=== PATIENT | female | born 1955 | race Caucasian/White ===

== ENCOUNTER 2017-05-13 11:45 | Inpatient (IN) | payer MEDICAID, SELFPAY ==
[2017-05-13 12:24] VITALS: BMI 26.6
[2017-05-13] MEDS ORDERED: Sodium Chloride 0.9% 1,000 ML IV STA (12:26)
--- NOTE | 2017-05-13 12:44 | ED PDOC ---
HPI: Altered Mental Status Time Seen by Provider: 05/13/17 12:03 Chief Complaint (Nursing): Weakness/Neurological Deficit Chief Complaint (Provider): Weakness/Neurological Deficit History Per: Family Current Symptoms Are (Timing): Still Present Additional Complaint(s): 62 y/o female with a past medical history of brain tumor craniotomy (04/2017) who presents to the emergency department accompanied by family with a complaint of increased lethargy within the past 2-3 days. As per history from family, patient was recently evaluated by [facility], [place] where imaging/work up was performed and underwent brain tumor craniotomy. Patient had been bed bound within the last 10 days and taken care of by the family. Patient has persistent weakness of the right side of the body, generally responding back to family members by recognizing their faces but not speaking clearly, felt warm yesterday , and had not been able to swallow solid foods but instead is only tolerating liquids by mouth through a straw. Denies cough, vomiting, diarrhea, or abdominal pain. Past Medical History Reviewed: Historical Data, Nursing Documentation, Vital Signs Vital Signs: Last Vital Signs Temp 98.6 F 05/13/17 11:49 Pulse 79 05/13/17 11:49 Resp 16 05/13/17 11:49 BP 140/77 05/13/17 11:49 Pulse Ox 96 05/13/17 11:49 - Medical History PMH: HTN Denies: Chronic Kidney Disease - Surgical History Other surgeries: brain tumor craniotomy - Family History Family History: States: Unknown Family Hx - Social History Current smoker - smoking cessation education provided: No Alcohol: None Drugs: Denies - Home Medications Home Medications: Ambulatory Orders Medication Instructions Recorded Dexamethasone [Decadron Inj] 2 mg IVP Q8H #21 vial 05/07/17 levETIRAcetam [Keppra] 500 mg IVPB Q12H #60 vial 05/07/17 - Allergies Allergies/Adverse Reactions: Allergies Allergy/AdvReac Type Severity Reaction Status Date / Time No Known Allergies Allergy Verified 04/21/17 16:11 Review of Systems Review Of Systems: ROS cannot be obtained secondary to pt's inabilty to answer questions. (Limited. Family is notifying us) Constitutional: Positive for: Other ([place] warm yesterday. Feeling lethargic and not able to tolerate PO intake) Respiratory: Negative for: Cough Gastrointestinal: Negative for: Vomiting, Abdominal Pain, Diarrhea Neurological: Positive for: Weakness (presistent weakness of the right side of the body) Physical Exam - Reviewed Nursing Documentation Reviewed: Yes Vital Signs Reviewed: Yes - Physical Exam Appears: Positive for: Non-toxic, No Acute Distress Head Exam: Positive for: ATRAUMATIC, NORMAL INSPECTION, NORMOCEPHALIC Skin: Positive for: Normal Color, Warm (to touch), Dry Eye Exam: Positive for: PERRL (4 mL reactive b/l equal) ENT: Positive for: Other (Dry mucous membranes) Cardiovascular/Chest: Positive for: Regular Rate, Rhythm. Negative for: Murmur Respiratory: Positive for: Normal Breath Sounds. Negative for: Accessory Muscle Use, Respiratory Distress Gastrointestinal/Abdominal: Positive for: Normal Exam, Soft. Negative for: Tenderness Extremity: Positive for: Normal ROM, Other (4/5 strength of the left side. Minimal movement of the right side). Negative for: Pedal Edema Neurologic/Psych: Positive for: Alert, Other (Responding to name being called via gestures but not able to speak) - Laboratory Results Result Diagrams: 05/13/17 12:45 05/13/17 12:45 - ECG O2 Sat by Pulse Oximetry: 96 (RA) Pulse Ox Interpretation: Normal - Radiology X-Ray: Viewed By Mt X-Ray Interpretation: No Acute Disease - Progress Condition: Unchanged - Physician Consult Information Time Consulting Physican Contacted: 14:00 Physician Contacted: Valerio Butt (will see patient and consult) Outcome Of Conversation: patient will need chemo and radiation - Critical Care Total Time (In Min): 30 Medical Decision Making Medical Decision Making: Time: 12:25 Initial Impression: Altered mental status. Differential diagnosis include intracranial pressure vs infection vs dehydration Initial Plan: --VBG --Head CT --EKG --CMP --Urine DIP --CBC w/ diff --PTT & Prothrombin --Chest x-ray --Sodium Chloride 250 mls/hr IV --Blood Culture --Reevaluation Time: 13:33 --Head CT FINDINGS: HEMORRHAGE: No intracranial hemorrhage. BRAIN: Again seen is heterogeneous low-attenuation mass lesion at the medial aspect of the left frontal lobe extending to the midline and extending to the anterior portion of the corpus callosum. The mass demonstrate foci of high attenuation and surrounding with large vasogenic edema. The mass and the vasogenic edema again demonstrates mass effect on the frontal horns of the lateral ventricles and approximately 16 millimeter [id number] midline shift. VENTRICLES: There is mild hydrocephalus seen. CALVARIUM: Patient status post craniotomy at the frontal portion of the skull P PARANASAL SINUSES: Unremarkable as visualized. No significant inflammatory changes. MASTOID AIR CELLS: Unremarkable as visualized. No inflammatory changes. OTHER FINDINGS: None. IMPRESSION: Re- demonstration of mass lesion at the frontal portion of the brain likely arise from the medial aspect of the left frontal lobe or from the anterior portion of the corpus callosum. The mass lesion and the large surrounding vasogenic edema again resulting in mass effect on the lateral ventricles and approximately 16 millimeter [id number] midline shift at the anterior portion of the brain. The possibility of malignant neoplasm again should be considered. Interval resolving of the previously seen post surgery/biopsy changes noted in the previous exam dated 05/01/2017 done on [facility], [place]. Time: 13:38 --Rocephin 1000 mg IV --Urine culture --Urinaylsis Scribe Attestation: Documented by Molly Velez, acting as a scribe for Kenneth Boone MD. Provider Scribe Attestation: All medical record entries made by the Scribe were at my direction and personally dictated by me. I have reviewed the chart and agree that the record accurately reflects my personal performance of the history, physical exam, medical decision making, and the department course for this patient. I have also personally directed, reviewed, and agree with the discharge instructions and disposition. Disposition - Clinical Impression Clinical Impression: UTI (urinary tract infection), Dehydration, Brain tumor - Patient ED Disposition Is Patient to be Admitted: Yes Doctor Will See Patient In The: Hospital - Disposition Disposition: Transfer of Care Disposition Time: 14:00 Condition: GUARDED Forms: [employer] ([employer]ami) - Pt Status Changed To: Hospital Disposition Of: Inpatient - Admit Certification Admit to Inpatient:: After my assessment, the patient will require hospitalization for at least two midnights. This is because of the severity of symptoms shown, intensity of services needed, and/or the medical risk in this patient being treated as an outpatient. - POA Present On Arrival: None
[2017-05-13 12:50] LABS: VENOUS BLOOD GAS BASE EXCESS 5.4 mmol/L (0.0-2.0); VENOUS BLOOD GAS PCO2 38 mmHg (40-60); VENOUS BLOOD PH 7.49 (7.32-7.43)
[2017-05-13 13:02] LABS: BASO # 0.1 K/uL (0.0-0.2); BASO % 0.4 % (0.0-2.0); EOS # 0.1 K/uL (0.0-0.7); EOS % 0.4 % (0.0-4.0); HEMATOCRIT 50.3 % (34.0-47.0); LYMPH # 1.7 K/uL (1.0-4.3); LYMPH % 8.9 % (20.0-40.0); MEAN CELL VOLUME 90.7 fl (81.0-99.0); MEAN CORPUSCULAR HEMOGLOBIN 30.2 pg (27.0-31.0); MEAN CORPUSCULAR HGB CONC 33.3 g/dL (33.0-37.0); MONO # 0.7 K/uL (0.0-0.8); MONO % 3.8 % (0.0-10.0); NEUT % 86.5 % (50.0-75.0); NRBC % 0.1 % (0.0-0.0); PLATELET COUNT 307 K/uL (130-400); RED CELL DISTRIBUTION WIDTH 13.4 % (11.5-14.5); WHITE BLOOD COUNT 18.5 K/uL (4.8-10.8)
[2017-05-13 13:27] LABS: PARTIAL THROMBOPLASTIN TIME 24.2 Seconds (25.6-37.1)
[2017-05-13 13:31] LABS: ALB/GLOB RATIO 1.2 (1.0-2.1); ALKALINE PHOSPHATASE 64 U/L (38-126); ALT/SGPT 172 U/L (9-52); AST/SGOT 92 U/L (14-36); BILIRUBIN,TOTAL 1.1 mg/dl (0.2-1.3); BLOOD UREA NITROGEN 33 mg/dl (7-17); CALCIUM 9.5 mg/dL (8.4-10.2); CARBON DIOXIDE 25 mmol/L (22-30); CHLORIDE 101 mmol/L (98-107); GFR AFRICAN-AMERICAN > 60; GLUCOSE,RANDOM 124 mg/dL (65-105); SODIUM 139 mmol/l (132-148); TOTAL PROTEIN 7.5 G/DL (6.3-8.2)
--- NOTE | 2017-05-13 13:35 | CT ---
PROCEDURE: CT HEAD WITHOUT CONTRAST. HISTORY: progressive AMS s/p brain tumor resection 04/21/17 COMPARISON: Comparison is made to the previous study dated 05/01/2017 done at [facility] TECHNIQUE: Axial computed tomography images were obtained through the head/brain without intravenous contrast. Radiation dose: Total exam DLP = 1297.45 mGy-cm. This CT exam was performed using one or more of the following dose reduction techniques: Automated exposure control, adjustment of the mA and/or kV according to patient size, and/or use of iterative reconstruction technique. FINDINGS: HEMORRHAGE: No intracranial hemorrhage. BRAIN: Again seen is heterogeneous low-attenuation mass lesion at the medial aspect of the left frontal lobe extending to the midline and extending to the anterior portion of the corpus callosum. The mass demonstrate foci of high attenuation and surrounding with large vasogenic edema. The mass and the vasogenic edema again demonstrates mass effect on the frontal horns of the lateral ventricles and approximately 16 millimeter [id number]-[id number] midline shift. VENTRICLES: There is mild hydrocephalus seen. CALVARIUM: Patient status post craniotomy at the frontal portion of the skull P PARANASAL SINUSES: Unremarkable as visualized. No significant inflammatory changes. MASTOID AIR CELLS: Unremarkable as visualized. No inflammatory changes. OTHER FINDINGS: None. IMPRESSION: Re- demonstration of mass lesion at the frontal portion of the brain likely arise from the medial aspect of the left frontal lobe or from the anterior portion of the corpus callosum. The mass lesion and the large surrounding vasogenic edema again resulting in mass effect on the lateral ventricles and approximately 16 millimeter [id number] midline shift at the anterior portion of the brain. The possibility of malignant neoplasm again should be considered. Interval resolving of the previously seen post surgery/biopsy changes noted in the previous exam dated 05/01/2017 done on [facility].
[2017-05-13 13:37] LABS: POTASSIUM 4.5 MMOL/L (3.6-5.0)
[2017-05-13 14:24] LABS: EOSINOPHIL 1 % (0-7); LARGE PLATELETS PRESENT; NEUTROPHIL 86 % (42-75); TOTAL CELLS COUNTED 100
[2017-05-13] MEDS ORDERED: cefTRIAXone (Rocephin) 1 gm Inj ONE (14:51)
[2017-05-13 15:00] LABS: RBC URINE 12 /hpf (0-3); URINE BACTERIA MANY (<OCC); WBC URINE 146 /hpf (0-5)
[2017-05-13 15:08] LABS: URINE COLOR AMBER (YELLOW); URINE GLUCOSE (UA) NEGATIVE (Normal)
[2017-05-13 15:09] LABS: URINE BILIRUBIN NEGATIVE (NEGATIVE); URINE BLOOD MODERATE (NEGATIVE); URINE KETONE NEGATIVE (NEGATIVE); URINE LEUKOCYTE ESTERASE MOD Leu/uL (Negative); URINE PROTEIN 30 mg/dL (NEGATIVE)
--- NOTE | 2017-05-13 15:09 | CP.PCM.HP ---
History of Present Illness - History of Present Illness History of Present Illness: 62 yo female with history of HTN and recent craniotomy (05/03/2017) with brain tumor biopsy brought in by family because of worsening lethargy since discharged from [facility] a week ago. Son claimed his mother was lethargic , with right hemiplegia post surgery but was able to utter one word at a time and able to recognized faces. The last 3 days, patient's mental status deteriorated and could not respond at all. Present on Admission - Present on Admission Any Indicators Present on Admission: No History of DVT/PE: No History of Uncontrolled Diabetes: No Urinary Catheter: No Decubitus Ulcer Present: No Review of Systems - Review of Systems Systems not reviewed;Unavailable: Altered Mental Status Past Patient History - Tetanus Immunizations Tetanus Immunization: Unknown - Past Medical History & Family History Past Medical History?: Yes - Past Social History Smoking Status: Never Smoked Alcohol: None Drugs: Denies Home Situation {Lives}: With Family - CARDIAC Hx Hypertension: Yes - PULMONARY Hx Respiratory Disorders: No - NEUROLOGICAL Hx Neurological Disorder: No - HEENT Hx HEENT Problems: No - RENAL Hx Chronic Kidney Disease: No - ENDOCRINE/METABOLIC Hx Endocrine Disorders: No - HEMATOLOGICAL/ONCOLOGICAL Hx Blood Disorders: No - INTEGUMENTARY Hx Dermatological Problems: No - MUSCULOSKELETAL/RHEUMATOLOGICAL Hx Musculoskeletal Disorders: No Hx Falls: No - GASTROINTESTINAL Hx Gastrointestinal Disorders: No - GENITOURINARY/GYNECOLOGICAL Hx Genitourinary Disorders: No - PSYCHIATRIC Hx Substance Use: No - SURGICAL HISTORY Other/Comment: BRAIN BIOPSY 05/03/2017 - ANESTHESIA Hx Anesthesia: Yes Hx Anesthesia Reactions: No Meds Allergies/Adverse Reactions: Allergies Allergy/AdvReac Type Severity Reaction Status Date / Time No Known Allergies Allergy Verified 04/21/17 16:11 Physical Exam - Constitutional Appears: No Acute Distress, Other (lethargic) - Head Exam Head Exam: ATRAUMATIC - Eye Exam Eye Exam: PERRL. absent: Scleral icterus - ENT Exam ENT Exam: Mucous Membranes Moist - Neck Exam Neck exam: Negative for: Meningismus - Respiratory Exam Respiratory Exam: absent: Rhonchi, Wheezes, Respiratory Distress - Cardiovascular Exam Cardiovascular Exam: REGULAR RHYTHM, +S1, +S2 - GI/Abdominal Exam GI & Abdominal Exam: Soft. absent: Tenderness - Rectal Exam Rectal Exam: Deferred - Extremities Exam Extremities exam: Negative for: pedal edema - Neurological Exam Neurological exam: Altered - Skin Skin Exam: Dry, Intact Results - Vital Signs Recent Vital Signs: Last Vital Signs Temp 98.6 F 05/13/17 11:49 Pulse 79 05/13/17 11:49 Resp 16 05/13/17 11:49 BP 140/77 05/13/17 11:49 Pulse Ox 96 05/13/17 14:18 - Labs Result Diagrams: 05/13/17 12:45 05/13/17 12:45 Labs: Laboratory Results - last 24 hr 05/13/17 05/13/17 05/13/17 12:44 12:45 12:45 WBC 18.5 H RBC 5.55 H Hgb 16.8 H Hct 50.3 H MCV 90.7 MCH 30.2 MCHC 33.3 RDW 13.4 Plt Count 307 MPV 8.0 Neut % (Auto) 86.5 H Lymph % (Auto) 8.9 L [place] % (Auto) 3.8 Eos % (Auto) 0.4 Baso % (Auto) 0.4 Neut # 16.0 H Lymph # 1.7 [place] # 0.7 Eos # 0.1 Baso # 0.1 Neutrophils % (Manual) 86 H Lymphocytes % (Manual) 9 L Monocytes % (Manual) 4 Eosinophils % (Manual) 1 Platelet Estimate Normal Large Platelets Present Poikilocytosis (manual Slight Anisocytosis (manual) Slight Ovalocytes Slight PT INR APTT pO2 38 VBG pH 7.49 H VBG pCO2 38 L VBG HCO3 28.6 VBG Total CO2 30.2 H VBG O2 Sat (Calc) 79.3 H VBG Base Excess 5.4 H Sodium 160.0 H* 139 Chloride 114.0 H 101 Glucose 139 H Lactate 1.2 FiO2 21.0 Potassium 4.5 Carbon Dioxide 25 Anion Gap 18 BUN 33 H Creatinine 0.6 L Est GFR ( Amer) > 60 Est GFR (Non-Af Amer) > 60 Random Glucose 124 H Calcium 9.5 Total Bilirubin 1.1 AST 92 H D ALT 172 H Alkaline Phosphatase 64 Total Protein 7.5 Albumin 4.2 Globulin 3.4 Albumin/Globulin Ratio 1.2 05/13/17 12:45 WBC RBC Hgb Hct MCV MCH MCHC RDW Plt Count MPV Neut % (Auto) Lymph % (Auto) [place] % (Auto) Eos % (Auto) Baso % (Auto) Neut # Lymph # [place] # Eos # Baso # Neutrophils % (Manual) Lymphocytes % (Manual) Monocytes % (Manual) Eosinophils % (Manual) Platelet Estimate Large Platelets Poikilocytosis (manual Anisocytosis (manual) Ovalocytes PT 11.5 INR 1.1 APTT 24.2 L pO2 VBG pH VBG pCO2 VBG HCO3 VBG Total CO2 VBG O2 Sat (Calc) VBG Base Excess Sodium Chloride Glucose Lactate FiO2 Potassium Carbon Dioxide Anion Gap BUN Creatinine Est GFR ( Amer) Est GFR (Non-Af Amer) Random Glucose Calcium Total Bilirubin AST ALT Alkaline Phosphatase Total Protein Albumin Globulin Albumin/Globulin Ratio Assessment & Plan (1) UTI (urinary tract infection) Status: Acute Comment: admit to telemetry. blood and urine culture. continue Rocephin 1gm IV daily (2) Brain tumor Status: Acute Comment: Dr Butt on neurosurgical consult. Oncology consult with Dr Ash. neuro consult with Dr Dawson. Dexamethasone 4mg IV q 8hrs. Keppra 500mg IV q 12hrs (3) HTN (hypertension) Status: Chronic Comment: BP stable. off medication. continue monitoring BP (4) DVT prophylaxis Status: Acute Comment: venodyne boots while in bed. avoid anticoauglants and anti platelets because of recent craniotomy
[2017-05-13] MEDS: Dexamethasone 4 MG in Sodium Chloride 0.9% 50 ML IVPB SCH (16:47)
--- NOTE | 2017-05-13 16:53 | CP.PCM.PN ---
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 Family is aware of this and prognosis There is nothing more to do from a surgical point of view Please consult her medical and radiation oncologist to see if they have anything more to add Her overall prognosis is very poor, would suggest discussion end of life options with family Objective - Vital Signs/Intake and Output Vital Signs (last 24 hours): Temp Pulse Resp BP Pulse Ox 97.8 F 63 20 148/82 98 05/13/17 15:46 05/13/17 15:46 05/13/17 15:46 05/13/17 15:46 05/13/17 15:46 - Medications Medications: Current Medications Dexamethasone 4 mg/ Sodium (Chloride) 51 mls @ 51 mls/hr IVPB Q8 [facility] Last Admin: 05/13/17 16:47 Dose: 51 mls/hr Levetiracetam 500 mg/ Sodium (Chloride) 105 mls @ 210 mls/hr IVPB Q12 [facility] Ceftriaxone Sodium 1 gm/ (Sodium Chloride) 100 mls @ 100 mls/hr IVPB DAILY [facility] - Labs Labs: 05/13/17 12:45 05/13/17 12:45 PT 11.5 Seconds (9.8-13.1) 05/13/17 12:45 INR 1.1 (0.9-1.2) 05/13/17 12:45 APTT 24.2 Seconds (25.6-37.1) L 05/13/17 12:45
--- NOTE | 2017-05-13 17:26 | RAD ---
HISTORY: altered MS COMPARISON: No prior. FINDINGS: LUNGS: No active pulmonary disease. PLEURA: No significant pleural effusion identified, no pneumothorax apparent. CARDIOVASCULAR: Normal. OSSEOUS STRUCTURES: No significant abnormalities. VISUALIZED UPPER ABDOMEN: Normal. OTHER FINDINGS: None. IMPRESSION: No active disease.
[2017-05-13] MEDS: levETIRAcetam 500 MG in Sodium Chloride 0.9% 100 ML IVPB SCH (21:37)
[2017-05-13] MEDS: Sodium Chloride 0.9% 1,000 ML IV SCH (22:56)
--- NOTE | 2017-05-14 01:16 | CP.PCM.CON ---
History of Present Illness - History of Present Illness History of Present Illness: 62 year old female with a history of HTN, left sided brain mass s/p biopsy with pathology pending, admitted with increased lethargy. She initially presented to [facility] with right sided weakness and jerking of her RUE and found to have a left sided brain mass. She underwent craniotomy and biopsy. Since being discharged from the hospital, her family reports to increased lethargy and weakness. Past medical history: HTN Past surgical history: None Family history: Denies hematologic and oncologic problems Social history: Denies tobacco, alcohol, and illicit drug use. Allergies: NKA Review of systems: All remaining review of systems including HEENT, cardiovascular, respiratory, gastrointestinal, genitourinary, musculoskeletal, dermatologic, neurologic, and psychiatric are negative unless mentioned in the HPI. Past Patient History - Tetanus Immunizations Tetanus Immunization: Unknown - Past Medical History & Family History Past Medical History?: Yes - Past Social History Smoking Status: Never Smoked Alcohol: None Drugs: Denies Home Situation {Lives}: With Family - CARDIAC Hx Hypertension: Yes - PULMONARY Hx Respiratory Disorders: No - NEUROLOGICAL Hx Neurological Disorder: No - HEENT Hx HEENT Problems: No - RENAL Hx Chronic Kidney Disease: No - ENDOCRINE/METABOLIC Hx Endocrine Disorders: No - HEMATOLOGICAL/ONCOLOGICAL Hx Blood Disorders: No - INTEGUMENTARY Hx Dermatological Problems: No - MUSCULOSKELETAL/RHEUMATOLOGICAL Hx Musculoskeletal Disorders: No Hx Falls: No - GASTROINTESTINAL Hx Gastrointestinal Disorders: No - GENITOURINARY/GYNECOLOGICAL Hx Genitourinary Disorders: No - PSYCHIATRIC Hx Substance Use: No - SURGICAL HISTORY Other/Comment: BRAIN BIOPSY 05/03/2017 - ANESTHESIA Hx Anesthesia: Yes Hx Anesthesia Reactions: No Meds Allergies/Adverse Reactions: Allergies Allergy/AdvReac Type Severity Reaction Status Date / Time No Known Allergies Allergy Verified 04/21/17 16:11 - Medications Medications: Current Medications Dexamethasone 4 mg/ Sodium (Chloride) 51 mls @ 51 mls/hr IVPB Q8 [facility] Last Admin: 05/13/17 16:47 Dose: 51 mls/hr Levetiracetam 500 mg/ Sodium (Chloride) 105 mls @ 210 mls/hr IVPB Q12 [facility]BDIRAH[facility] Last Admin: 05/13/17 21:37 Dose: 210 mls/hr Ceftriaxone Sodium 1 gm/ (Sodium Chloride) 100 mls @ 100 mls/hr IVPB DAILY [facility] Sodium Chloride (Sodium Chloride 0.9%) 1,000 mls @ 100 mls/hr IV .Q10H [facility]BDIRAH[facility] Stop: 05/14/17 21:07 Last Admin: 05/13/17 22:56 Dose: 100 mls/hr Physical Exam - Head Exam Head Exam: ATRAUMATIC - Eye Exam Eye Exam: Normal appearance - ENT Exam ENT Exam: Mucous Membranes Dry - Respiratory Exam Respiratory Exam: NORMAL BREATHING PATTERN - Cardiovascular Exam Cardiovascular Exam: +S1, +S2 - GI/Abdominal Exam GI & Abdominal Exam: Normal Bowel Sounds - Extremities Exam Extremities exam: Positive for: normal inspection - Neurological Exam Neurological exam: Altered - Psychiatric Exam Psychiatric exam: Depressed - Skin Skin Exam: Warm Results - Vital Signs Recent Vital Signs: Last Vital Signs Temp 98.5 F 05/14/17 00:12 Pulse 62 05/14/17 00:12 Resp 20 05/14/17 00:12 BP 138/85 05/14/17 00:12 Pulse Ox 98 05/14/17 00:12 - Labs Result Diagrams: 05/13/17 12:45 05/13/17 12:45 Labs: Laboratory Results - last 24 hr 05/13/17 05/13/17 05/13/17 12:44 12:45 12:45 WBC 18.5 H RBC 5.55 H Hgb 16.8 H Hct 50.3 H MCV 90.7 MCH 30.2 MCHC 33.3 RDW 13.4 Plt Count 307 MPV 8.0 Neut % (Auto) 86.5 H Lymph % (Auto) 8.9 L [place] % (Auto) 3.8 Eos % (Auto) 0.4 Baso % (Auto) 0.4 Neut # 16.0 H Lymph # 1.7 [place] # 0.7 Eos # 0.1 Baso # 0.1 Neutrophils % (Manual) 86 H Lymphocytes % (Manual) 9 L Monocytes % (Manual) 4 Eosinophils % (Manual) 1 Platelet Estimate Normal Large Platelets Present Poikilocytosis (manual Slight Anisocytosis (manual) Slight Ovalocytes Slight PT INR APTT pO2 38 VBG pH 7.49 H VBG pCO2 38 L VBG HCO3 28.6 VBG Total CO2 30.2 H VBG O2 Sat (Calc) 79.3 H VBG Base Excess 5.4 H Sodium 160.0 H* 139 Chloride 114.0 H 101 Glucose 139 H Lactate 1.2 FiO2 21.0 Potassium 4.5 Carbon Dioxide 25 Anion Gap 18 BUN 33 H Creatinine 0.6 L Est GFR ( Amer) > 60 Est GFR (Non-Af Amer) > 60 Random Glucose 124 H Calcium 9.5 Total Bilirubin 1.1 AST 92 H D ALT 172 H Alkaline Phosphatase 64 Total Protein 7.5 Albumin 4.2 Globulin 3.4 Albumin/Globulin Ratio 1.2 Urine Color Urine Clarity Urine pH Ur Specific [place] Urine Protein Urine Glucose (UA) Urine Ketones Urine Blood Urine Nitrate Urine Bilirubin Urine Urobilinogen Ur Leukocyte Esterase Urine RBC (Auto) Urine Microscopic WBC Amorphous Sediment Urine Bacteria 05/13/17 05/13/17 12:45 14:05 WBC RBC Hgb Hct MCV MCH MCHC RDW Plt Count MPV Neut % (Auto) Lymph % (Auto) [place] % (Auto) Eos % (Auto) Baso % (Auto) Neut # Lymph # [place] # Eos # Baso # Neutrophils % (Manual) Lymphocytes % (Manual) Monocytes % (Manual) Eosinophils % (Manual) Platelet Estimate Large Platelets Poikilocytosis (manual Anisocytosis (manual) Ovalocytes PT 11.5 INR 1.1 APTT 24.2 L pO2 VBG pH VBG pCO2 VBG HCO3 VBG Total CO2 VBG O2 Sat (Calc) VBG Base Excess Sodium Chloride Glucose Lactate FiO2 Potassium Carbon Dioxide Anion Gap BUN Creatinine Est GFR ( Amer) Est GFR (Non-Af Amer) Random Glucose Calcium Total Bilirubin AST ALT Alkaline Phosphatase Total Protein Albumin Globulin Albumin/Globulin Ratio Urine Color [place] Urine Clarity Cldy Urine pH 5.0 Ur Specific [place] 1.029 Urine Protein 30 Urine Glucose (UA) Negative Urine Ketones Negative Urine Blood Moderate Urine Nitrate Positive H Urine Bilirubin Negative Urine Urobilinogen 2.0 H Ur Leukocyte Esterase Mod Urine RBC (Auto) 12 H Urine Microscopic WBC 146 H Amorphous Sediment Moderate H Urine Bacteria Many H Assessment & Plan (1) Brain tumor Assessment and Plan: awaiting pathology report agree with IV steroids further treatment recommendations based on pathology Status: Acute (2) Leukocytosis Assessment and Plan: on antibiotics Thank you for this interesting consult. Status: Acute
[2017-05-14] MEDS: Dexamethasone 4 MG in Sodium Chloride 0.9% 50 ML IVPB SCH ×2 (01:43→08:39)
[2017-05-14 06:08] LABS: BASO % 0.3 % (0.0-2.0); HEMATOCRIT 42.8 % (34.0-47.0); LYMPH % 5.7 % (20.0-40.0); MEAN CELL VOLUME 90.4 fl (81.0-99.0); MEAN CORPUSCULAR HEMOGLOBIN 30.4 pg (27.0-31.0); MEAN CORPUSCULAR HGB CONC 33.6 g/dL (33.0-37.0); MEAN PLATELET VOLUME 7.4 fl (7.2-11.7); MONO # 0.1 K/uL (0.0-0.8); MONO % 0.5 % (0.0-10.0); NEUT % 93.5 % (50.0-75.0); PLATELET COUNT 266 K/uL (130-400); WHITE BLOOD COUNT 17.1 K/uL (4.8-10.8)
[2017-05-14 06:14] LABS: BLOOD UREA NITROGEN 22 mg/dl (7-17); CALCIUM 8.9 mg/dL (8.4-10.2); CARBON DIOXIDE 21 mmol/L (22-30); CHLORIDE 106 mmol/L (98-107); GFR AFRICAN-AMERICAN > 60; GLUCOSE,RANDOM 130 mg/dL (65-105); POTASSIUM 4.1 MMOL/L (3.6-5.0); SODIUM 137 mmol/l (132-148)
[2017-05-14] MEDS: levETIRAcetam 500 MG in Sodium Chloride 0.9% 100 ML IVPB SCH ×2 (08:40→21:08)
[2017-05-14] MEDS: Sodium Chloride 0.9% 1,000 ML IV SCH (08:41)
[2017-05-14 10:37] LABS: NEUTROPHIL 91 % (42-75); TOTAL CELLS COUNTED 100
--- NOTE | 2017-05-14 11:11 | CP.PCM.PN ---
Subjective - Date & Time of Evaluation Date of Evaluation: 05/14/17 Time of Evaluation: 11:09 - Subjective Subjective: Ms. Espinoza was seen and examined at the bedside. She has history of HTN and recent craniotomy (05/03/2017) with brain tumor biopsy brought in by family because of worsening lethargy since discharged from [facility] a week ago. Son claimed his mother was lethargic, with right hemiplegia post surgery but was able to utter one word at a time and able to recognized faces. The last 3 days, patient's mental status deteriorated and could not respond at all. Today she mumbles words that is incomprehensible, unable to follow simple commands. There was no untoward events overnight. Objective - Vital Signs/Intake and Output Vital Signs (last 24 hours): Temp Pulse Resp BP Pulse Ox 97.6 F 91 H 20 185/82 H 98 05/14/17 08:17 05/14/17 08:17 05/14/17 08:17 05/14/17 08:17 05/14/17 08:17 Intake and Output: 05/14/17 05/14/17 06:59 18:59 Intake Total 1650 Output Total 600 Balance 1050 - Medications Medications: Current Medications Dexamethasone 4 mg/ Sodium (Chloride) 51 mls @ 51 mls/hr IVPB Q8 [facility] Last Admin: 05/14/17 08:39 Dose: 51 mls/hr Levetiracetam 500 mg/ Sodium (Chloride) 105 mls @ 210 mls/hr IVPB Q12 [facility] Last Admin: 05/14/17 08:40 Dose: 210 mls/hr Ceftriaxone Sodium 1 gm/ (Sodium Chloride) 100 mls @ 100 mls/hr IVPB DAILY [facility] Last Admin: 05/14/17 08:40 Dose: 100 mls/hr Sodium Chloride (Sodium Chloride 0.9%) 1,000 mls @ 100 mls/hr IV .Q10H [facility] Stop: 05/14/17 21:07 Last Admin: 05/14/17 08:41 Dose: Not Given - Labs Labs: 05/14/17 05:30 05/14/17 05:30 PT 11.5 Seconds (9.8-13.1) 05/13/17 12:45 INR 1.1 (0.9-1.2) 05/13/17 12:45 APTT 24.2 Seconds (25.6-37.1) L 05/13/17 12:45 - Constitutional Appears: No Acute Distress - Head Exam Head Exam: ATRAUMATIC, NORMAL INSPECTION, NORMOCEPHALIC - Neurological Exam Neurological Exam: Awake Neuro motor strength exam: Left Upper Extremity: 4, Right Upper Extremity: 0, Left Lower Extremity: 3, Right Lower Extremity: 0 Additional comments: She is unable to follow simple commands, buts moves left upper extremity with no weakness. Assessment and Plan (1) UTI (urinary tract infection) Assessment & Plan: Case discussed with Dr. Dawson, will continue current medical treatment Status: Acute
--- NOTE | 2017-05-14 11:39 | CARD ---
APPROVED REPORT EKG Measurement Heart [id number] <Conclusion> Normal sinus rhythm Normal ECG
--- NOTE | 2017-05-14 12:11 | CP.PCM.PN ---
Subjective - Date & Time of Evaluation Date of Evaluation: 05/14/17 Time of Evaluation: 10:30 - Subjective Subjective: Pt seen and examined. Pt appeared more alert and focus although still non- verbal and unable to follow command. Son standing nearby agreed. Objective - Vital Signs/Intake and Output Vital Signs (last 24 hours): Temp Pulse Resp BP Pulse Ox 97.6 F 91 H 20 185/82 H 98 05/14/17 08:17 05/14/17 09:00 05/14/17 08:17 05/14/17 08:17 05/14/17 08:17 Intake and Output: 05/14/17 05/14/17 06:59 18:59 Intake Total 1650 Output Total 600 Balance 1050 - Medications Medications: Current Medications Dexamethasone 4 mg/ Sodium (Chloride) 51 mls @ 51 mls/hr IVPB Q8 [facility] Last Admin: 05/14/17 08:39 Dose: 51 mls/hr Levetiracetam 500 mg/ Sodium (Chloride) 105 mls @ 210 mls/hr IVPB Q12 [facility] Last Admin: 05/14/17 08:40 Dose: 210 mls/hr Ceftriaxone Sodium 1 gm/ (Sodium Chloride) 100 mls @ 100 mls/hr IVPB DAILY [facility] Last Admin: 05/14/17 08:40 Dose: 100 mls/hr Sodium Chloride (Sodium Chloride 0.9%) 1,000 mls @ 100 mls/hr IV .Q10H [facility] Stop: 05/14/17 21:07 Last Admin: 05/14/17 08:41 Dose: Not Given - Labs Labs: 05/14/17 05:30 05/14/17 05:30 PT 11.5 Seconds (9.8-13.1) 05/13/17 12:45 INR 1.1 (0.9-1.2) 05/13/17 12:45 APTT 24.2 Seconds (25.6-37.1) L 05/13/17 12:45 - Constitutional Appears: No Acute Distress - Head Exam Head Exam: ATRAUMATIC - Eye Exam Eye Exam: absent: Scleral icterus - ENT Exam ENT Exam: Mucous Membranes Moist - Neck Exam Neck Exam: absent: Meningismus - Respiratory Exam Respiratory Exam: absent: Rhonchi, Wheezes, Respiratory Distress - Cardiovascular Exam Cardiovascular Exam: REGULAR RHYTHM, +S1, +S2 - GI/Abdominal Exam GI & Abdominal Exam: Soft. absent: Tenderness - Rectal Exam Rectal Exam: Deferred - Extremities Exam Extremities Exam: absent: Pedal Edema - Neurological Exam Neurological Exam: Altered Neuro motor strength exam: Left Upper Extremity: 4, Right Upper Extremity: 0, Left Lower Extremity: 4, Right Lower Extremity: 0 - Psychiatric Exam Psychiatric exam: Flat Affect - Skin Skin Exam: Dry, Intact Assessment and Plan (1) UTI (urinary tract infection) Status: Acute (2) Brain tumor Status: Acute (3) HTN (hypertension) Status: Chronic (4) DVT prophylaxis Status: Acute - Assessment and Plan (Free Text) Assessment: 62 yo female with history of HTN and recent craniotomy (05/03/2017) for brain tumor biopsy brought back because of worsening lethargy since discharged from [facility] a week ago. (1) UTI (urinary tract infection) continue Rocephin 1gm IV daily urine culture grew gram negative rods, sensitivity still pending WBC trending down slowly, WBC: 17.1 (2) Brain tumor result of biopsy is pending Dr Butt, neurosurgical consult, recommended surgical procedure. 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 He suggested discussion with family end of life care Dr Ash, oncology consult waiting for official report of biopsy neuro consult with Dr Dawson. continue Dexamethasone 4mg IV q 8hrs. check with Dr Dawson if we can start tapering Dexamethasone Keppra 500mg IV q 12hrs (3) HTN (hypertension) BP stable. off medication. continue monitoring BP (4) DVT prophylaxis venodyne boots while in bed. avoid anticoauglants and anti platelets because of recent craniotomy
--- NOTE | 2017-05-14 12:56 | CP.PCM.CON ---
History of Present Illness - History of Present Illness History of Present Illness: Mrs. Espinoza is a 62-year-old woman with a recently diagnosed left frontal lobe mass s/p resection. She developed right side hemiplegia and aphasia. 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 The patient is well known to me and was previously seen by me at [facility]. Her family is aware of the poor prognosis, but are interested in medical management to help her with pain and to attempt to improve some residual function. I discussed the degree of edema in the left hemisphere based on the most recent CT scan and suggested increasing the steroids, increasing the serum sodium and starting amantadine to attempt to improve mental status. They agreed with the plan and understand that it is mostly an attempt to delay the inevitable. Review of Systems - Review of Systems All systems: reviewed and no additional remarkable complaints except Past Patient History - Tetanus Immunizations Tetanus Immunization: Unknown - Past Medical History & Family History Past Medical History?: Yes - Past Social History Smoking Status: Never Smoked Alcohol: None Drugs: Denies Home Situation {Lives}: With Family - CARDIAC Hx Hypertension: Yes - PULMONARY Hx Respiratory Disorders: No - NEUROLOGICAL Hx Neurological Disorder: No - HEENT Hx HEENT Problems: No - RENAL Hx Chronic Kidney Disease: No - ENDOCRINE/METABOLIC Hx Endocrine Disorders: No - HEMATOLOGICAL/ONCOLOGICAL Hx Blood Disorders: No - INTEGUMENTARY Hx Dermatological Problems: No - MUSCULOSKELETAL/RHEUMATOLOGICAL Hx Musculoskeletal Disorders: No Hx Falls: No - GASTROINTESTINAL Hx Gastrointestinal Disorders: No - GENITOURINARY/GYNECOLOGICAL Hx Genitourinary Disorders: No - PSYCHIATRIC Hx Substance Use: No - SURGICAL HISTORY Other/Comment: BRAIN BIOPSY 05/03/2017 - ANESTHESIA Hx Anesthesia: Yes Hx Anesthesia Reactions: No Meds Allergies/Adverse Reactions: Allergies Allergy/AdvReac Type Severity Reaction Status Date / Time No Known Allergies Allergy Verified 04/21/17 16:11 - Medications Medications: Current Medications Dexamethasone 4 mg/ Sodium (Chloride) 51 mls @ 51 mls/hr IVPB Q8 [facility] Last Admin: 05/14/17 08:39 Dose: 51 mls/hr Levetiracetam 500 mg/ Sodium (Chloride) 105 mls @ 210 mls/hr IVPB Q12 [facility] Last Admin: 05/14/17 08:40 Dose: 210 mls/hr Ceftriaxone Sodium 1 gm/ (Sodium Chloride) 100 mls @ 100 mls/hr IVPB DAILY [facility] Last Admin: 05/14/17 08:40 Dose: 100 mls/hr Sodium Chloride (Sodium Chloride 0.9%) 1,000 mls @ 100 mls/hr IV .Q10H [facility] Stop: 05/14/17 21:07 Last Admin: 05/14/17 08:41 Dose: Not Given Physical Exam - Constitutional Appears: Cachectic - Head Exam Additional comments: Evidence of recent frontal craniotomy and surgical resection - Eye Exam Eye Exam: EOMI, Normal appearance, PERRL - ENT Exam ENT Exam: Mucous Membranes Moist - Neck Exam Neck exam: Positive for: Normal Inspection - Respiratory Exam Respiratory Exam: Clear to Auscultation Bilateral - Cardiovascular Exam Cardiovascular Exam: REGULAR RHYTHM, +S1, +S2 - GI/Abdominal Exam GI & Abdominal Exam: Normal Bowel Sounds - Rectal Exam Rectal Exam: Deferred - Extremities Exam Extremities exam: Positive for: normal inspection - Neurological Exam Additional comments: CN 2-12 appear normal on the left side. Ride side shoulder shrug and CN 11 weakness, likely is central. Right side hemiplegic and aphasic. Contracted in RUE and RLE. Deconditioned, increased tone. Sensation is somewhat preserved on the right side. Facial droop is noted on the right. Left side is 3-4/5 in strength due to deconditioning with normal tone. Gait could not be assessed. Coordination could not be assessed to aphasia. Follows simple, but not complex commands. - Psychiatric Exam Psychiatric exam: Normal Affect, Normal Mood - Skin Additional comments: Evidence of frontal craniotomy and incision Results - Vital Signs Recent Vital Signs: Last Vital Signs Temp 97.6 F 05/14/17 08:17 Pulse 91 H 05/14/17 09:00 Resp 20 05/14/17 08:17 BP 185/82 H 05/14/17 08:17 Pulse Ox 98 05/14/17 08:17 - Labs Result Diagrams: 05/14/17 05:30 05/14/17 05:30 Labs: Laboratory Results - last 24 hr 05/13/17 05/13/17 05/13/17 11:57 12:44 12:45 WBC 18.5 H RBC 5.55 H Hgb 16.8 H Hct 50.3 H MCV 90.7 MCH 30.2 MCHC 33.3 RDW 13.4 Plt Count 307 MPV 8.0 Neut % (Auto) 86.5 H Lymph % (Auto) 8.9 L Woodward % (Auto) 3.8 Eos % (Auto) 0.4 Baso % (Auto) 0.4 Neut # 16.0 H Lymph # 1.7 Woodward # 0.7 Eos # 0.1 Baso # 0.1 Neutrophils % (Manual) 86 H Lymphocytes % (Manual) 9 L Monocytes % (Manual) 4 Eosinophils % (Manual) 1 Platelet Estimate Normal Large Platelets Present RBC Morphology Poikilocytosis (manual Slight Anisocytosis (manual) Slight Ovalocytes Slight PT INR APTT pO2 38 VBG pH 7.49 H VBG pCO2 38 L VBG HCO3 28.6 VBG Total CO2 30.2 H VBG O2 Sat (Calc) 79.3 H VBG Base Excess 5.4 H Sodium 160.0 H* Chloride 114.0 H Glucose 139 H Lactate 1.2 FiO2 21.0 Potassium Carbon Dioxide Anion Gap BUN Creatinine Est GFR ( Amer) Est GFR (Non-Af Amer) POC Glucose (mg/dL) 122 H Random Glucose Calcium Total Bilirubin AST ALT Alkaline Phosphatase Total Protein Albumin Globulin Albumin/Globulin Ratio Urine Color Urine Clarity Urine pH Ur Specific Avalon Urine Protein Urine Glucose (UA) Urine Ketones Urine Blood Urine Nitrate Urine Bilirubin Urine Urobilinogen Ur Leukocyte Esterase Urine RBC (Auto) Urine Microscopic WBC Amorphous Sediment Urine Bacteria 05/13/17 05/13/17 05/13/17 12:45 12:45 14:05 WBC RBC Hgb Hct MCV MCH MCHC RDW Plt Count MPV Neut % (Auto) Lymph % (Auto) Woodward % (Auto) Eos % (Auto) Baso % (Auto) Neut # Lymph # Woodward # Eos # Baso # Neutrophils % (Manual) Lymphocytes % (Manual) Monocytes % (Manual) Eosinophils % (Manual) Platelet Estimate Large Platelets RBC Morphology Poikilocytosis (manual Anisocytosis (manual) Ovalocytes PT 11.5 INR 1.1 APTT 24.2 L pO2 VBG pH VBG pCO2 VBG HCO3 VBG Total CO2 VBG O2 Sat (Calc) VBG Base Excess Sodium 139 Chloride 101 Glucose Lactate FiO2 Potassium 4.5 Carbon Dioxide 25 Anion Gap 18 BUN 33 H Creatinine 0.6 L Est GFR ( Amer) > 60 Est GFR (Non-Af Amer) > 60 POC Glucose (mg/dL) Random Glucose 124 H Calcium 9.5 Total Bilirubin 1.1 AST 92 H D ALT 172 H Alkaline Phosphatase 64 Total Protein 7.5 Albumin 4.2 Globulin 3.4 Albumin/Globulin Ratio 1.2 Urine Color Lynn Urine Clarity Cldy Urine pH 5.0 Ur Specific Avalon 1.029 Urine Protein 30 Urine Glucose (UA) Negative Urine Ketones Negative Urine Blood Moderate Urine Nitrate Positive H Urine Bilirubin Negative Urine Urobilinogen 2.0 H Ur Leukocyte Esterase Mod Urine RBC (Auto) 12 H Urine Microscopic WBC 146 H Amorphous Sediment Moderate H Urine Bacteria Many H 05/14/17 05/14/17 05:30 05:30 WBC 17.1 H RBC 4.74 Hgb 14.4 D Hct 42.8 MCV 90.4 MCH 30.4 MCHC 33.6 RDW 13.0 Plt Count 266 MPV 7.4 Neut % (Auto) 93.5 H Lymph % (Auto) 5.7 L Woodward % (Auto) 0.5 Eos % (Auto) 0.0 Baso % (Auto) 0.3 Neut # 16.0 H Lymph # 1.0 Woodward # 0.1 Eos # 0.0 Baso # 0.0 Neutrophils % (Manual) 91 H Lymphocytes % (Manual) 8 L Monocytes % (Manual) 1 Eosinophils % (Manual) Platelet Estimate Normal Large Platelets RBC Morphology Normal Poikilocytosis (manual Anisocytosis (manual) Ovalocytes PT INR APTT pO2 VBG pH VBG pCO2 VBG HCO3 VBG Total CO2 VBG O2 Sat (Calc) VBG Base Excess Sodium 137 Chloride 106 Glucose Lactate FiO2 Potassium 4.1 Carbon Dioxide 21 L Anion Gap 14 BUN 22 H Creatinine 0.5 L Est GFR ( Amer) > 60 Est GFR (Non-Af Amer) > 60 POC Glucose (mg/dL) Random Glucose 130 H Calcium 8.9 Total Bilirubin AST ALT Alkaline Phosphatase Total Protein Albumin Globulin Albumin/Globulin Ratio Urine Color Urine Clarity Urine pH Ur Specific [place] Urine Protein Urine Glucose (UA) Urine Ketones Urine Blood Urine Nitrate Urine Bilirubin Urine Urobilinogen Ur Leukocyte Esterase Urine RBC (Auto) Urine Microscopic WBC Amorphous Sediment Urine Bacteria - Imaging and Cardiology CT scan - head Status: Image reviewed by me, Report reviewed by me (CT scan of the head showed increased edema that appears to be vasogenic, but may also be due to tumor spread.) Assessment & Plan (1) Brain tumor Assessment and Plan: 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 Will increase steroids (increase to 8 mg), and increase sodium (3% sodium at 30 mL/hr ) to attempt to decrease ICP. Varela start amantadine (100 mg BID) to improve mental status. Continue conservative management, start PT/OT and continue DVT Px. Thank you. Status: Acute Priority: High
[2017-05-14] MEDS: Sodium Chloride 3% 500 ML IV SCH (14:00)
[2017-05-14] MEDS: Dexamethasone 6 MG in Sodium Chloride 0.9% 50 ML IVPB SCH ×2 (16:17→21:08)
[2017-05-15] MEDS: Sodium Chloride 3% 500 ML IV SCH ×2 (05:12→20:44)
[2017-05-15] MEDS: Dexamethasone 6 MG in Sodium Chloride 0.9% 50 ML IVPB SCH ×4 (05:15→23:57)
[2017-05-15] MEDS: levETIRAcetam 500 MG in Sodium Chloride 0.9% 100 ML IVPB SCH ×2 (08:31→20:46)
--- NOTE | 2017-05-15 09:59 | CP.PCM.PN ---
Subjective - Date & Time of Evaluation Date of Evaluation: 05/15/17 Time of Evaluation: 09:57 - Subjective Subjective: Ms. Espinoza was seen and examined at the bedside. She still unable to responds to verbal request, but awake. She is in no signs of distress. There was no untoward events overnight. Objective - Vital Signs/Intake and Output Vital Signs (last 24 hours): Temp Pulse Resp BP Pulse Ox 97.8 F 65 20 161/79 H 98 05/15/17 08:50 05/15/17 08:50 05/15/17 08:50 05/15/17 08:50 05/15/17 08:50 Intake and Output: 05/15/17 05/15/17 06:59 18:59 Intake Total 630 Output Total 475 Balance 155 - Medications Medications: Current Medications Acetaminophen (Tylenol 650 Mg Supp) 650 mg MD Q6 PRN PRN Reason: Headache Last Admin: 05/14/17 16:15 Dose: 650 mg Amantadine HCl (Amantadine 100 Mg Cap) 100 mg PO BID [facility] Levetiracetam 500 mg/ Sodium (Chloride) 105 mls @ 210 mls/hr IVPB Q12 [facility] Last Admin: 05/15/17 08:31 Dose: 210 mls/hr Ceftriaxone Sodium 1 gm/ (Sodium Chloride) 100 mls @ 100 mls/hr IVPB DAILY [facility] Last Admin: 05/15/17 08:31 Dose: 100 mls/hr Dexamethasone 6 mg/ Sodium (Chloride) 51.5 mls @ 103 mls/hr IVPB Q6 [facility] Last Admin: 05/15/17 09:51 Dose: 103 mls/hr Sodium Chloride (Hypertonic Saline 3%) 500 mls @ 30 mls/hr IV .[id number] [facility] Stop: 05/15/17 12:58 Last Admin: 05/15/17 05:12 Dose: 30 mls/hr - Labs Labs: 05/14/17 05:30 05/15/17 08:15 PT 11.5 Seconds (9.8-13.1) 05/13/17 12:45 INR 1.1 (0.9-1.2) 05/13/17 12:45 APTT 24.2 Seconds (25.6-37.1) L 05/13/17 12:45 - Constitutional Appears: No Acute Distress - Neurological Exam Neurological Exam: Awake Neuro motor strength exam: Left Upper Extremity: 4, Right Upper Extremity: 0 ( contracted), Left Lower Extremity: 3, Right Lower Extremity: 0 Additional comments: Neurological improved from previous examination. Able to responds to tactile stimuli, but unable to follow simple request. Assessment and Plan (1) UTI (urinary tract infection) Assessment & Plan: Case disdussed with Dr. Dawson, continue current medical, physical, speech, and occupational therapies. Continue 3% NaCL drip at 30 ml/hr with the goal to keep her sodium level at 145. Amantidine 100 mg PO BID to be added in her medical regimen. Status: Acute
--- NOTE | 2017-05-15 13:07 | CP.PCM.PN ---
Subjective - Date & Time of Evaluation Date of Evaluation: 05/15/17 Time of Evaluation: 11:00 - Subjective Subjective: Pt seen and examined. Appeared more alert with spontaneous movement except from the right limbs. Objective - Vital Signs/Intake and Output Vital Signs (last 24 hours): Temp Pulse Resp BP Pulse Ox 97.8 F 65 20 161/79 H 98 05/15/17 08:50 05/15/17 08:50 05/15/17 08:50 05/15/17 08:50 05/15/17 08:50 Intake and Output: 05/15/17 05/15/17 06:59 18:59 Intake Total 630 Output Total 475 Balance 155 - Medications Medications: Current Medications Acetaminophen (Tylenol 650 Mg Supp) 650 mg RI Q6 PRN PRN Reason: Headache Last Admin: 05/14/17 16:15 Dose: 650 mg Amantadine HCl (Amantadine 100 Mg Cap) 100 mg PO BID [facility] Last Admin: 05/15/17 11:15 Dose: 100 mg Levetiracetam 500 mg/ Sodium (Chloride) 105 mls @ 210 mls/hr IVPB Q12 [facility] Last Admin: 05/15/17 08:31 Dose: 210 mls/hr Ceftriaxone Sodium 1 gm/ (Sodium Chloride) 100 mls @ 100 mls/hr IVPB DAILY [facility] Last Admin: 05/15/17 08:31 Dose: 100 mls/hr Dexamethasone 6 mg/ Sodium (Chloride) 51.5 mls @ 103 mls/hr IVPB Q6 [facility] Last Admin: 05/15/17 09:51 Dose: 103 mls/hr - Labs Labs: 05/14/17 05:30 05/15/17 08:15 PT 11.5 Seconds (9.8-13.1) 05/13/17 12:45 INR 1.1 (0.9-1.2) 05/13/17 12:45 APTT 24.2 Seconds (25.6-37.1) L 05/13/17 12:45 - Constitutional Appears: No Acute Distress - Head Exam Head Exam: ATRAUMATIC - Eye Exam Eye Exam: absent: Scleral icterus - ENT Exam ENT Exam: Mucous Membranes Moist - Neck Exam Neck Exam: absent: Meningismus - Respiratory Exam Respiratory Exam: absent: Rhonchi, Wheezes, Respiratory Distress - Cardiovascular Exam Cardiovascular Exam: REGULAR RHYTHM, +S1, +S2 - GI/Abdominal Exam GI & Abdominal Exam: Soft. absent: Tenderness - Rectal Exam Rectal Exam: Deferred - Neurological Exam Neuro motor strength exam: Right Upper Extremity: 0, Right Lower Extremity: 0 - Psychiatric Exam Psychiatric exam: Flat Affect - Skin Skin Exam: Dry, Intact Assessment and Plan (1) UTI (urinary tract infection) Status: Acute (2) Brain tumor Status: Acute (3) HTN (hypertension) Status: Chronic (4) DVT prophylaxis Status: Acute - Assessment and Plan (Free Text) Assessment: 62 yo female with history of HTN and recent craniotomy (05/03/2017) for brain tumor biopsy brought back because of worsening lethargy since discharged from [facility] a week ago. (1) UTI (urinary tract infection) urine culture grew ESBL E Coli sensitive to Meropenem, resistant to Ceftriaxone ID consult with Dr Au (2) Brain tumor result of biopsy is pending Dr Butt, neurosurgical consult, recommended no surgical procedure. 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 He suggested discussion with family end of life care Dr Ash, oncology consult waiting for official report of biopsy neuro consult with Dr Dawson appreciated increase Dexamethasone 6mg IV q 8hrs. keep Na level at 145 by infusing Hypertonic solution Keppra 500mg IV q 12hrs PICC line insertion by IR Amantadine 100mg PO BID (3) HTN (hypertension) BP stable. off medication. continue monitoring BP (4) DVT prophylaxis venodyne boots while in bed. avoid anticoauglants and anti platelets because of recent craniotomy
[2017-05-15] MEDS ORDERED: Lidocaine 1% Inj (20ml) ONE (16:52)
--- NOTE | 2017-05-15 16:59 | PCM.SURG1 ---
Surgeon's Initial Post Op Note - Surgeon's Notes Surgeon: Basim Marie MD Director Meetings: None Type of Anesthesia: Local Pre-Operative Diagnosis: Glioblastoma, poor venous access Operative Findings: Patent left basilic vein Post-Operative Diagnosis: Poor venous access Operation Performed: Single lumen picc placement left basilic vein, 39 cm. Tip is in the SVC. Specimen/Specimens Removed: None Estimated Blood Loss: EBL {In ML}: 2 Blood Products Given: N/A Drains Used: No Drains Post-Op Condition: Fair Date of Surgery/Procedure: 05/15/17 Time of Surgery/Procedure: 16:50
[2017-05-15] MEDS: Meropenem 1 GM in Sodium Chloride 0.9% 100 ML IVPB SCH (17:45)
--- NOTE | 2017-05-15 18:19 | CP.PCM.CON ---
History of Present Illness - History of Present Illness History of Present Illness: Infcetious Disease Consultation Note- asked to see this patient at the request of the hospitalist for ESBL UTI. HPI- history obtained from the medical chart and patient's son and who are at her bedside. Patient is a 62 year old female with pmh of HTN with recent diagnosis of left sided brain mass s/p recent craniotomu=y and bx who is now admitte with increased lethargy. pt. abraham miller initially presented to [facility] earlier this month for right sided weakness and RUE jerking movement and was found to have left sided brain mass and underwent craniotomy and biopsy and since then pt. has develped aphasia and right sided hemiplagia and as per Neurologist's note The appearance of the mass is consistent with a high-grade glioblastoma grade IV ( as per path report from [facility]) pt's family is aware of her poor prognosis but they brought her bc she was more lethargic and weak . Pt. does not answer any of my questions . Past medical history: HTN Past surgical history: None Family history: Denies hematologic and oncologic problems Social history: Denies tobacco, alcohol, and illicit drug use. Allergies: NKDA Review of Systems - Review of Systems Review of Systems: ROS_ unable to obtain as pt. does not answer qustions. as per her son increased weakness and lethargy Past Patient History - Tetanus Immunizations Tetanus Immunization: Unknown - Past Medical History & Family History Past Medical History?: Yes - Past Social History Smoking Status: Never Smoked Alcohol: None Drugs: Denies Home Situation {Lives}: With Family - CARDIAC Hx Hypertension: Yes - PULMONARY Hx Respiratory Disorders: No - NEUROLOGICAL Hx Neurological Disorder: No - HEENT Hx HEENT Problems: No - RENAL Hx Chronic Kidney Disease: No - ENDOCRINE/METABOLIC Hx Endocrine Disorders: No - HEMATOLOGICAL/ONCOLOGICAL Hx Blood Disorders: No - INTEGUMENTARY Hx Dermatological Problems: No - MUSCULOSKELETAL/RHEUMATOLOGICAL Hx Musculoskeletal Disorders: No Hx Falls: No - GASTROINTESTINAL Hx Gastrointestinal Disorders: No - GENITOURINARY/GYNECOLOGICAL Hx Genitourinary Disorders: No - PSYCHIATRIC Hx Substance Use: No - SURGICAL HISTORY Other/Comment: BRAIN BIOPSY 05/03/2017 - ANESTHESIA Hx Anesthesia: Yes Hx Anesthesia Reactions: No Meds Allergies/Adverse Reactions: Allergies Allergy/AdvReac Type Severity Reaction Status Date / Time No Known Allergies Allergy Verified 04/21/17 16:11 - Medications Medications: Current Medications Acetaminophen (Tylenol 650 Mg Supp) 650 mg [place] Q6 PRN PRN Reason: Headache Last Admin: 05/14/17 16:15 Dose: 650 mg Amantadine HCl (Amantadine 100 Mg Cap) 100 mg PO BID [facility] Last Admin: 05/15/17 17:46 Dose: 100 mg Levetiracetam 500 mg/ Sodium (Chloride) 105 mls @ 210 mls/hr IVPB Q12 ABDIRAHMAN Last Admin: 05/15/17 08:31 Dose: 210 mls/hr Dexamethasone 6 mg/ Sodium (Chloride) 51.5 mls @ 103 mls/hr IVPB Q6 ABDIRAHMAN Last Admin: 05/15/17 17:46 Dose: 103 mls/hr Meropenem 1 gm/ Sodium (Chloride) 100 mls @ 100 mls/hr IVPB Q8 [facility] Last Admin: 05/15/17 17:45 Dose: 100 mls/hr Physical Exam - Constitutional Appears: No Acute Distress - Head Exam Additional comments: has vicente in place at site of her craniotomy no surrounding erythema , no discharge - ENT Exam ENT Exam: Normal Oropharynx - Neck Exam Neck exam: Positive for: Full Rom - Respiratory Exam Respiratory Exam: Clear to Auscultation Bilateral, NORMAL BREATHING PATTERN - Cardiovascular Exam Cardiovascular Exam: RRR, +S1, +S2 - GI/Abdominal Exam GI & Abdominal Exam: Normal Bowel Sounds, Soft Additional comments: NT, ND - Extremities Exam Extremities exam: Positive for: normal inspection - Neurological Exam Additional comments: awake but does not answer questions Results - Vital Signs Recent Vital Signs: Last Vital Signs Temp 97.8 F 05/15/17 16:42 Pulse 70 05/15/17 17:17 Resp 16 05/15/17 17:17 BP 158/88 H 05/15/17 17:17 Pulse Ox 99 05/15/17 17:17 - Labs Result Diagrams: 05/14/17 05:30 05/15/17 18:00 Labs: Laboratory Results - last 24 hr 05/15/17 05/15/17 08:15 08:15 Sodium 141 Serum Osmolality 300 Laboratory Results - last 72 hr 05/13/17 05/13/17 05/13/17 11:57 12:44 12:45 WBC 18.5 H RBC 5.55 H Hgb 16.8 H Hct 50.3 H MCV 90.7 MCH 30.2 MCHC 33.3 RDW 13.4 Plt Count 307 MPV 8.0 Neut % (Auto) 86.5 H Lymph % (Auto) 8.9 L [place] % (Auto) 3.8 Eos % (Auto) 0.4 Baso % (Auto) 0.4 Neut # 16.0 H Lymph # 1.7 [place] # 0.7 Eos # 0.1 Baso # 0.1 Neutrophils % (Manual) 86 H Lymphocytes % (Manual) 9 L Monocytes % (Manual) 4 Eosinophils % (Manual) 1 Platelet Estimate Normal Large Platelets Present RBC Morphology Poikilocytosis (manual Slight Anisocytosis (manual) Slight Ovalocytes Slight PT INR APTT pO2 38 VBG pH 7.49 H VBG pCO2 38 L VBG HCO3 28.6 VBG Total CO2 30.2 H VBG O2 Sat (Calc) 79.3 H VBG Base Excess 5.4 H Sodium 160.0 H* Chloride 114.0 H Glucose 139 H Lactate 1.2 FiO2 21.0 Potassium Carbon Dioxide Anion Gap BUN Creatinine Est GFR ( Amer) Est GFR (Non-Af Amer) POC Glucose (mg/dL) 122 H Random Glucose Serum Osmolality Calcium Total Bilirubin AST ALT Alkaline Phosphatase Total Protein Albumin Globulin Albumin/Globulin Ratio Urine Color Urine Clarity Urine pH Ur Specific [place] Urine Protein Urine Glucose (UA) Urine Ketones Urine Blood Urine Nitrate Urine Bilirubin Urine Urobilinogen Ur Leukocyte Esterase Urine RBC (Auto) Urine Microscopic WBC Amorphous Sediment Urine Bacteria 05/13/17 05/13/17 05/13/17 12:45 12:45 14:05 WBC RBC Hgb Hct MCV MCH MCHC RDW Plt Count MPV Neut % (Auto) Lymph % (Auto) [place] % (Auto) Eos % (Auto) Baso % (Auto) Neut # Lymph # [place] # Eos # Baso # Neutrophils % (Manual) Lymphocytes % (Manual) Monocytes % (Manual) Eosinophils % (Manual) Platelet Estimate Large Platelets RBC Morphology Poikilocytosis (manual Anisocytosis (manual) Ovalocytes PT 11.5 INR 1.1 APTT 24.2 L pO2 VBG pH VBG pCO2 VBG HCO3 VBG Total CO2 VBG O2 Sat (Calc) VBG Base Excess Sodium 139 Chloride 101 Glucose Lactate FiO2 Potassium 4.5 Carbon Dioxide 25 Anion Gap 18 BUN 33 H Creatinine 0.6 L Est GFR ( Amer) > 60 Est GFR (Non-Af Amer) > 60 POC Glucose (mg/dL) Random Glucose 124 H Serum Osmolality Calcium 9.5 Total Bilirubin 1.1 AST 92 H D ALT 172 H Alkaline Phosphatase 64 Total Protein 7.5 Albumin 4.2 Globulin 3.4 Albumin/Globulin Ratio 1.2 Urine Color [place] Urine Clarity Cldy Urine pH 5.0 Ur Specific [place] 1.029 Urine Protein 30 Urine Glucose (UA) Negative Urine Ketones Negative Urine Blood Moderate Urine Nitrate Positive H Urine Bilirubin Negative Urine Urobilinogen 2.0 H Ur Leukocyte Esterase Mod Urine RBC (Auto) 12 H Urine Microscopic WBC 146 H Amorphous Sediment Moderate H Urine Bacteria Many H 05/14/17 05/14/17 05/14/17 05:30 05:30 14:45 WBC 17.1 H RBC 4.74 Hgb 14.4 D Hct 42.8 MCV 90.4 MCH 30.4 MCHC 33.6 RDW 13.0 Plt Count 266 MPV 7.4 Neut % (Auto) 93.5 H Lymph % (Auto) 5.7 L [place] % (Auto) 0.5 Eos % (Auto) 0.0 Baso % (Auto) 0.3 Neut # 16.0 H Lymph # 1.0 [place] # 0.1 Eos # 0.0 Baso # 0.0 Neutrophils % (Manual) 91 H Lymphocytes % (Manual) 8 L Monocytes % (Manual) 1 Eosinophils % (Manual) Platelet Estimate Normal Large Platelets RBC Morphology Normal Poikilocytosis (manual Anisocytosis (manual) Ovalocytes PT INR APTT pO2 VBG pH VBG pCO2 VBG HCO3 VBG Total CO2 VBG O2 Sat (Calc) VBG Base Excess Sodium 137 138 Chloride 106 Glucose Lactate FiO2 Potassium 4.1 Carbon Dioxide 21 L Anion Gap 14 BUN 22 H Creatinine 0.5 L Est GFR ( Amer) > 60 Est GFR (Non-Af Amer) > 60 POC Glucose (mg/dL) Random Glucose 130 H Serum Osmolality Calcium 8.9 Total Bilirubin AST ALT Alkaline Phosphatase Total Protein Albumin Globulin Albumin/Globulin Ratio Urine Color Urine Clarity Urine pH Ur Specific [place] Urine Protein Urine Glucose (UA) Urine Ketones Urine Blood Urine Nitrate Urine Bilirubin Urine Urobilinogen Ur Leukocyte Esterase Urine RBC (Auto) Urine Microscopic WBC Amorphous Sediment Urine Bacteria 0905/15/17 05/15/17 14:45 08:15 08:15 WBC RBC Hgb Hct MCV MCH MCHC RDW Plt Count MPV Neut % (Auto) Lymph % (Auto) [place] % (Auto) Eos % (Auto) Baso % (Auto) Neut # Lymph # [place] # Eos # Baso # Neutrophils % (Manual) Lymphocytes % (Manual) Monocytes % (Manual) Eosinophils % (Manual) Platelet Estimate Large Platelets RBC Morphology Poikilocytosis (manual Anisocytosis (manual) Ovalocytes PT INR APTT pO2 VBG pH VBG pCO2 VBG HCO3 VBG Total CO2 VBG O2 Sat (Calc) VBG Base Excess Sodium 141 Chloride Glucose Lactate FiO2 Potassium Carbon Dioxide Anion Gap BUN Creatinine Est GFR ( Amer) Est GFR (Non-Af Amer) POC Glucose (mg/dL) Random Glucose Serum Osmolality 287 300 Calcium Total Bilirubin AST ALT Alkaline Phosphatase Total Protein Albumin Globulin Albumin/Globulin Ratio Urine Color Urine Clarity Urine pH Ur Specific [place] Urine Protein Urine Glucose (UA) Urine Ketones Urine Blood Urine Nitrate Urine Bilirubin Urine Urobilinogen Ur Leukocyte Esterase Urine RBC (Auto) Urine Microscopic WBC Amorphous Sediment Urine Bacteria 05/15/17 18:00 WBC RBC Hgb Hct MCV MCH MCHC RDW Plt Count MPV Neut % (Auto) Lymph % (Auto) [place] % (Auto) Eos % (Auto) Baso % (Auto) Neut # Lymph # [place] # Eos # Baso # Neutrophils % (Manual) Lymphocytes % (Manual) Monocytes % (Manual) Eosinophils % (Manual) Platelet Estimate Large Platelets RBC Morphology Poikilocytosis (manual Anisocytosis (manual) Ovalocytes PT INR APTT pO2 VBG pH VBG pCO2 VBG HCO3 VBG Total CO2 VBG O2 Sat (Calc) VBG Base Excess Sodium 139 Chloride Glucose Lactate FiO2 Potassium Carbon Dioxide Anion Gap BUN Creatinine Est GFR ( Amer) Est GFR (Non-Af Amer) POC Glucose (mg/dL) Random Glucose Serum Osmolality Calcium Total Bilirubin AST ALT Alkaline Phosphatase Total Protein Albumin Globulin Albumin/Globulin Ratio Urine Color Urine Clarity Urine pH Ur Specific [place] Urine Protein Urine Glucose (UA) Urine Ketones Urine Blood Urine Nitrate Urine Bilirubin Urine Urobilinogen Ur Leukocyte Esterase Urine RBC (Auto) Urine Microscopic WBC Amorphous Sediment Urine Bacteria Microbiology 05/13/17 12:00 Blood Blood Culture - Preliminary NO GROWTH AFTER 48 HOURS 05/13/17 12:45 Blood Blood Culture - Preliminary NO GROWTH AFTER 48 HOURS 05/13/17 14:05 Urine,Saleem Urine Culture - Final Escherichia Coli Accession No. : [id number] Patient Name / ID : PASCUAL HOLLIDAY / [id number] Exam Date : 05/13/2017 12:59:29 ( Approved ) Study Comment : Sex / Age : F / 62Y Creator : Jhonatan Sanchez Dictator : Jhonatan Sanchez Relocation Commissioner : Desk Maker : Jhonatan Sanchez Approver2 : Report Date : 05/13/2017 13:33:46 My Comment : PROCEDURE: CT HEAD WITHOUT CONTRAST. HISTORY: progressive AMS s/p brain tumor resection 04/21/17 COMPARISON: Comparison is made to the previous study dated 05/01/2017 done at [facility] TECHNIQUE: Axial computed tomography images were obtained through the head/brain without intravenous contrast. Radiation dose: Total exam DLP = 1297.45 mGy-cm. This CT exam was performed using one or more of the following dose reduction techniques: Automated exposure control, adjustment of the mA and/or kV according to patient size, and/or use of iterative reconstruction technique. FINDINGS: HEMORRHAGE: No intracranial hemorrhage. BRAIN: Again seen is heterogeneous low-attenuation mass lesion at the medial aspect of the left frontal lobe extending to the midline and extending to the anterior portion of the corpus callosum. The mass demonstrate foci of high attenuation and surrounding with large vasogenic edema. The mass and the vasogenic edema again demonstrates mass effect on the frontal horns of the lateral ventricles and approximately 16 millimeter [id number] midline shift. VENTRICLES: There is mild hydrocephalus seen. CALVARIUM: Patient status post craniotomy at the frontal portion of the skull P PARANASAL SINUSES: Unremarkable as visualized. No significant inflammatory changes. MASTOID AIR CELLS: Unremarkable as visualized. No inflammatory changes. OTHER FINDINGS: None. IMPRESSION: Re- demonstration of mass lesion at the frontal portion of the brain likely arise from the medial aspect of the left frontal lobe or from the anterior portion of the corpus callosum. The mass lesion and the large surrounding vasogenic edema again resulting in mass effect on the lateral ventricles and approximately 16 millimeter [id number] midline shift at the anterior portion of the brain. The possibility of malignant neoplasm again should be considered. Interval resolving of the previously seen post surgery/biopsy changes noted in the previous exam dated 05/01/2017 done on [facility]. Accession No. : [id number] Patient Name / ID : PASCUAL HOLLIDAY / [id number] Exam Date : 05/13/2017 12:28:49 ( Approved ) Study Comment : Sex / Age : F / 62Y Creator : Jhonatan Sanchez Dictator : Jhonatan Sanchez Relocation Commissioner : Desk Maker : Jhonatan Sanchez Approver2 : Report Date : 05/13/2017 17:24:20 My Comment : HISTORY: altered MS COMPARISON: No prior. FINDINGS: LUNGS: No active pulmonary disease. PLEURA: No significant pleural effusion identified, no pneumothorax apparent. CARDIOVASCULAR: Normal. OSSEOUS STRUCTURES: No significant abnormalities. VISUALIZED UPPER ABDOMEN: Normal. OTHER FINDINGS: None. IMPRESSION: No active disease. Assessment & Plan (1) Brain tumor Status: Acute Priority: High (2) UTI (urinary tract infection) Status: Acute (3) Leukocytosis Status: Acute - Assessment and Plan (Free Text) Assessment: A/P- 62 year old female with recently diagnosed brain mass s/p craniotomy and bx found to have high grade glioblastoma admitted with increased weakness. found to have + UA and urine cx ESBL e.coli afebrile has leukocytosis but is also on high dose steroids and hence leukocytosis could be partially from the steroids as well, however, in light of the + UA adn ESBL e.coli UTI and pt''s immune suppressed states advise to start treating with meropenem for this ESBL UTI. check blood cx as well. All above d/w patient's son and her at length and answered all their questions. Thank you for allowing me to take part in the care of this patient. will f/u while inpatient.
[2017-05-15] MEDS ORDERED: Sodium Chloride 3% 500 ML IV SCH (19:30)
[2017-05-16] MEDS: Meropenem 1 GM in Sodium Chloride 0.9% 100 ML IVPB SCH ×3 (01:18→17:49)
[2017-05-16] MEDS: Dexamethasone 6 MG in Sodium Chloride 0.9% 50 ML IVPB SCH ×3 (05:39→18:56)
[2017-05-16 09:01] LABS: HEMATOCRIT 41.9 % (34.0-47.0); MEAN CELL VOLUME 90.1 fl (81.0-99.0); MEAN CORPUSCULAR HEMOGLOBIN 30.2 pg (27.0-31.0); MEAN CORPUSCULAR HGB CONC 33.5 g/dL (33.0-37.0); RED CELL DISTRIBUTION WIDTH 13.1 % (11.5-14.5); WHITE BLOOD COUNT 14.6 K/uL (4.8-10.8)
[2017-05-16] MEDS: levETIRAcetam 500 MG in Sodium Chloride 0.9% 100 ML IVPB SCH ×2 (09:06→21:00)
[2017-05-16 09:17] LABS: BLOOD UREA NITROGEN 21 mg/dl (7-17); CARBON DIOXIDE 26 mmol/L (22-30); CHLORIDE 104 mmol/L (98-107); GFR AFRICAN-AMERICAN > 60; GLUCOSE,RANDOM 138 mg/dL (65-105); POTASSIUM 3.9 MMOL/L (3.6-5.0); SODIUM 141 mmol/l (132-148)
--- NOTE | 2017-05-16 10:46 | CP.PCM.PN ---
Subjective - Date & Time of Evaluation Date of Evaluation: 05/16/17 Time of Evaluation: 10:44 - Subjective Subjective: Ms. Espinoza was seen and examined at the bedside. She is more responsive and able to utter clear word like hello. There was no untoward events overnight. She is not in any acute distress. Objective - Vital Signs/Intake and Output Vital Signs (last 24 hours): Temp Pulse Resp BP Pulse Ox 97.9 F 66 20 151/78 H 99 05/16/17 08:00 05/16/17 08:00 05/16/17 08:00 05/16/17 08:00 05/16/17 08:00 Intake and Output: 05/16/17 05/16/17 06:59 18:59 Intake Total 760 Output Total 400 Balance 360 - Medications Medications: Current Medications Acetaminophen (Tylenol 650 Mg Supp) 650 mg [place] Q6 PRN PRN Reason: Headache Last Admin: 05/14/17 16:15 Dose: 650 mg Amantadine HCl (Amantadine 100 Mg Cap) 100 mg PO BID [facility] Last Admin: 05/16/17 09:06 Dose: 100 mg Levetiracetam 500 mg/ Sodium (Chloride) 105 mls @ 210 mls/hr IVPB Q12 ABDIRAHMAN Last Admin: 05/16/17 09:06 Dose: 210 mls/hr Meropenem 1 gm/ Sodium (Chloride) 100 mls @ 100 mls/hr IVPB Q8 ABDIRAHMAN Last Admin: 05/16/17 10:37 Dose: 100 mls/hr Sodium Chloride (Hypertonic Saline 3%) 500 mls @ 30 mls/hr IV .[id number] [facility] Stop: 05/16/17 19:24 Last Admin: 05/15/17 20:44 Dose: 30 mls/hr Dexamethasone 6 mg/ Sodium (Chloride) 51.5 mls @ 103 mls/hr IVPB 0000,0600,1200 ,1800 [facility] Last Admin: 05/16/17 05:39 Dose: 103 mls/hr - Labs Labs: 05/16/17 08:51 05/16/17 09:01 PT 11.5 Seconds (9.8-13.1) 05/13/17 12:45 INR 1.1 (0.9-1.2) 05/13/17 12:45 APTT 24.2 Seconds (25.6-37.1) L 05/13/17 12:45 - Constitutional Appears: Cachectic, Chronically Ill - Neurological Exam Neurological Exam: Awake Neuro motor strength exam: Left Upper Extremity: 4, Right Upper Extremity: 0, Left Lower Extremity: 4, Right Lower Extremity: 0 Additional comments: Neurologically improved from previous examination. She is able to follow simple request like raising her left arm and leg. She is able to swallow PO fluids with no evidence of aspiration. Assessment and Plan (1) UTI (urinary tract infection) Assessment & Plan: Case discussed with Dr. Dawson, continue all current medical, physical, and occupational therapies. Continue 3% NaCl to keep the patient Na level at 145 and serum osmolality at 300. Continue series of laboratory labs. such as sodium level and serum osmolality. Status: Acute
--- NOTE | 2017-05-16 11:26 | CP.PCM.PN ---
Subjective - Date & Time of Evaluation Date of Evaluation: 05/16/17 Time of Evaluation: 13:00 - Subjective Subjective: ID note- Pt. seen and examined today with her family at her bedside. slightly less drowsy today and seems to follow some simple commands. afebrile. Objective - Vital Signs/Intake and Output Vital Signs (last 24 hours): Temp Pulse Resp BP Pulse Ox 97.9 F 66 20 151/78 H 99 05/16/17 08:00 05/16/17 08:00 05/16/17 08:00 05/16/17 08:00 05/16/17 08:00 Intake and Output: 05/16/17 05/16/17 06:59 18:59 Intake Total 760 Output Total 400 Balance 360 - Medications Medications: Current Medications Acetaminophen (Tylenol 650 Mg Supp) 650 mg [place] Q6 PRN PRN Reason: Headache Last Admin: 05/14/17 16:15 Dose: 650 mg Amantadine HCl (Amantadine 100 Mg Cap) 100 mg PO BID [facility] Last Admin: 05/16/17 09:06 Dose: 100 mg Levetiracetam 500 mg/ Sodium (Chloride) 105 mls @ 210 mls/hr IVPB Q12 ABDIRAHMAN Last Admin: 05/16/17 09:06 Dose: 210 mls/hr Meropenem 1 gm/ Sodium (Chloride) 100 mls @ 100 mls/hr IVPB Q8 ABDIRAHMAN Last Admin: 05/16/17 10:37 Dose: 100 mls/hr Sodium Chloride (Hypertonic Saline 3%) 500 mls @ 30 mls/hr IV .[id number] [facility] Stop: 05/16/17 19:24 Last Admin: 05/15/17 20:44 Dose: 30 mls/hr Dexamethasone 6 mg/ Sodium (Chloride) 51.5 mls @ 103 mls/hr IVPB 0000,0600,1200 ,1800 ABDIRAHMAN Last Admin: 05/16/17 05:39 Dose: 103 mls/hr - Labs Labs: - Additional Findings Additional findings: - Constitutional Appears: No Acute Distress - Head Exam Additional comments: has vicente in place at site of her craniotomy no surrounding erythema , no discharge - ENT Exam ENT Exam: Normal Oropharynx - Neck Exam Neck exam: Positive for: Full Rom - Respiratory Exam Respiratory Exam: Clear to Auscultation Bilateral, NORMAL BREATHING PATTERN - Cardiovascular Exam Cardiovascular Exam: RRR, +S1, +S2 - GI/Abdominal Exam GI & Abdominal Exam: Normal Bowel Sounds, Soft Additional comments: NT, ND - Extremities Exam Extremities exam: Positive for: normal inspection - Neurological Exam Additional comments: more awake today Laboratory Results - last 72 hr 05/13/17 05/13/17 05/14/17 11:57 14:05 05:30 WBC 17.1 H RBC 4.74 Hgb 14.4 D Hct 42.8 MCV 90.4 MCH 30.4 MCHC 33.6 RDW 13.0 Plt Count 266 MPV 7.4 Neut % (Auto) 93.5 H Lymph % (Auto) 5.7 L [place] % (Auto) 0.5 Eos % (Auto) 0.0 Baso % (Auto) 0.3 Neut # 16.0 H Lymph # 1.0 [place] # 0.1 Eos # 0.0 Baso # 0.0 Neutrophils % (Manual) 91 H Lymphocytes % (Manual) 8 L Monocytes % (Manual) 1 Platelet Estimate Normal RBC Morphology Normal Sodium Potassium Chloride Carbon Dioxide Anion Gap BUN Creatinine Est GFR ( Amer) Est GFR (Non-Af Amer) POC Glucose (mg/dL) 122 H Random Glucose Serum Osmolality Calcium Urine Color [place] Urine Clarity Cldy Urine pH 5.0 Ur Specific [place] 1.029 Urine Protein 30 Urine Glucose (UA) Negative Urine Ketones Negative Urine Blood Moderate Urine Nitrate Positive H Urine Bilirubin Negative Urine Urobilinogen 2.0 H Ur Leukocyte Esterase Mod Urine RBC (Auto) 12 H Urine Microscopic WBC 146 H Amorphous Sediment Moderate H Urine Bacteria Many H 05/14/17 05/14/17 05/14/17 05:30 14:45 14:45 WBC RBC Hgb Hct MCV MCH MCHC RDW Plt Count MPV Neut % (Auto) Lymph % (Auto) [place] % (Auto) Eos % (Auto) Baso % (Auto) Neut # Lymph # [place] # Eos # Baso # Neutrophils % (Manual) Lymphocytes % (Manual) Monocytes % (Manual) Platelet Estimate RBC Morphology Sodium 137 138 Potassium 4.1 Chloride 106 Carbon Dioxide 21 L Anion Gap 14 BUN 22 H Creatinine 0.5 L Est GFR ( Amer) > 60 Est GFR (Non-Af Amer) > 60 POC Glucose (mg/dL) Random Glucose 130 H Serum Osmolality 287 Calcium 8.9 Urine Color Urine Clarity Urine pH Ur Specific [place] Urine Protein Urine Glucose (UA) Urine Ketones Urine Blood Urine Nitrate Urine Bilirubin Urine Urobilinogen Ur Leukocyte Esterase Urine RBC (Auto) Urine Microscopic WBC Amorphous Sediment Urine Bacteria 05/15/17 05/15/17 05/15/17 08:15 08:15 18:00 WBC RBC Hgb Hct MCV MCH MCHC RDW Plt Count MPV Neut % (Auto) Lymph % (Auto) [place] % (Auto) Eos % (Auto) Baso % (Auto) Neut # Lymph # [place] # Eos # Baso # Neutrophils % (Manual) Lymphocytes % (Manual) Monocytes % (Manual) Platelet Estimate RBC Morphology Sodium 141 139 Potassium Chloride Carbon Dioxide Anion Gap BUN Creatinine Est GFR ( Amer) Est GFR (Non-Af Amer) POC Glucose (mg/dL) Random Glucose Serum Osmolality 300 Calcium Urine Color Urine Clarity Urine pH Ur Specific [place] Urine Protein Urine Glucose (UA) Urine Ketones Urine Blood Urine Nitrate Urine Bilirubin Urine Urobilinogen Ur Leukocyte Esterase Urine RBC (Auto) Urine Microscopic WBC Amorphous Sediment Urine Bacteria 05/16/17 05/16/17 05/16/17 00:28 00:28 08:51 WBC 14.6 H RBC 4.65 Hgb 14.1 Hct 41.9 MCV 90.1 MCH 30.2 MCHC 33.5 RDW 13.1 Plt Count 227 MPV Neut % (Auto) Lymph % (Auto) [place] % (Auto) Eos % (Auto) Baso % (Auto) Neut # Lymph # [place] # Eos # Baso # Neutrophils % (Manual) Lymphocytes % (Manual) Monocytes % (Manual) Platelet Estimate RBC Morphology Sodium 138 Potassium Chloride Carbon Dioxide Anion Gap BUN Creatinine Est GFR ( Amer) Est GFR (Non-Af Amer) POC Glucose (mg/dL) Random Glucose Serum Osmolality 294 Calcium Urine Color Urine Clarity Urine pH Ur Specific [place] Urine Protein Urine Glucose (UA) Urine Ketones Urine Blood Urine Nitrate Urine Bilirubin Urine Urobilinogen Ur Leukocyte Esterase Urine RBC (Auto) Urine Microscopic WBC Amorphous Sediment Urine Bacteria 05/16/17 05/16/17 09:00 09:01 WBC RBC Hgb Hct MCV MCH MCHC RDW Plt Count MPV Neut % (Auto) Lymph % (Auto) [place] % (Auto) Eos % (Auto) Baso % (Auto) Neut # Lymph # [place] # Eos # Baso # Neutrophils % (Manual) Lymphocytes % (Manual) Monocytes % (Manual) Platelet Estimate RBC Morphology Sodium 141 Potassium 3.9 Chloride 104 Carbon Dioxide 26 Anion Gap 15 BUN 21 H Creatinine 0.5 L Est GFR ( Amer) > 60 Est GFR (Non-Af Amer) > 60 POC Glucose (mg/dL) Random Glucose 138 H Serum Osmolality 294 Calcium 9.0 Urine Color Urine Clarity Urine pH Ur Specific [place] Urine Protein Urine Glucose (UA) Urine Ketones Urine Blood Urine Nitrate Urine Bilirubin Urine Urobilinogen Ur Leukocyte Esterase Urine RBC (Auto) Urine Microscopic WBC Amorphous Sediment Urine Bacteria Microbiology 05/13/17 12:00 Blood Blood Culture - Preliminary NO GROWTH AFTER 3 DAYS 05/13/17 12:45 Blood Blood Culture - Preliminary NO GROWTH AFTER 3 DAYS 05/13/17 14:05 Urine,Saleem Urine Culture - Final Escherichia Coli Assessment and Plan (1) Brain tumor Status: Acute (2) UTI (urinary tract infection) Status: Acute (3) Leukocytosis Status: Acute - Assessment and Plan (Free Text) Assessment: A/P- 62 year old female with recently diagnosed brain mass s/p craniotomy and bx found to have high grade glioblastoma admitted with increased weakness. afebrile leukocytosis trending down urine cx- ESBL e.coli blood cx- neg x 2 Plan- continue with IV meropenem for ESBL e.coli UTI, day #2.
--- NOTE | 2017-05-16 11:39 | CP.PCM.PN ---
Subjective - Date & Time of Evaluation Date of Evaluation: 05/16/17 Time of Evaluation: 11:39 - Subjective Subjective: patient is nonverbal, selectively answers yes and no questions, appears to understand simple statements and follows simple commands no apparent distress and HD stable tolerating all therapies well Objective - Vital Signs/Intake and Output Vital Signs (last 24 hours): Temp Pulse Resp BP Pulse Ox 97.9 F 66 20 151/78 H 99 05/16/17 08:00 05/16/17 08:00 05/16/17 08:00 05/16/17 08:00 05/16/17 08:00 Intake and Output: 05/16/17 05/16/17 06:59 18:59 Intake Total 760 Output Total 400 Balance 360 - Medications Medications: Current Medications Acetaminophen (Tylenol 650 Mg Supp) 650 mg [place] Q6 PRN PRN Reason: Headache Last Admin: 05/14/17 16:15 Dose: 650 mg Amantadine HCl (Amantadine 100 Mg Cap) 100 mg PO BID [facility] Last Admin: 05/16/17 09:06 Dose: 100 mg Levetiracetam 500 mg/ Sodium (Chloride) 105 mls @ 210 mls/hr IVPB Q12 [facility] Last Admin: 05/16/17 09:06 Dose: 210 mls/hr Meropenem 1 gm/ Sodium (Chloride) 100 mls @ 100 mls/hr IVPB Q8 [facility] Last Admin: 05/16/17 10:37 Dose: 100 mls/hr Sodium Chloride (Hypertonic Saline 3%) 500 mls @ 30 mls/hr IV .[id number] [facility] Stop: 05/16/17 19:24 Last Admin: 05/15/17 20:44 Dose: 30 mls/hr Dexamethasone 6 mg/ Sodium (Chloride) 51.5 mls @ 103 mls/hr IVPB 0000,0600,1200 ,1800 [facility] Last Admin: 05/16/17 05:39 Dose: 103 mls/hr - Labs Labs: 05/16/17 08:51 05/16/17 09:01 PT 11.5 Seconds (9.8-13.1) 05/13/17 12:45 INR 1.1 (0.9-1.2) 05/13/17 12:45 APTT 24.2 Seconds (25.6-37.1) L 05/13/17 12:45 - Constitutional Appears: Non-toxic, No Acute Distress - Head Exam Head Exam: ATRAUMATIC, NORMOCEPHALIC - Eye Exam Eye Exam: EOMI, PERRL - ENT Exam ENT Exam: Mucous Membranes Moist, Normal Oropharynx - Respiratory Exam Respiratory Exam: Clear to Ausculation Bilateral, NORMAL BREATHING PATTERN - Cardiovascular Exam Cardiovascular Exam: RRR, +S1, +S2 - GI/Abdominal Exam GI & Abdominal Exam: Soft, Normal Bowel Sounds. absent: Tenderness, Organomegaly - Extremities Exam Extremities Exam: Normal Capillary Refill. absent: Joint Swelling - Back Exam Back Exam: absent: CVA tenderness (L), CVA tenderness (R) - Neurological Exam Neurological Exam: Alert, Awake - Skin Skin Exam: Dry, Warm Assessment and Plan - Assessment and Plan (Free Text) Plan: 62 yo female with history of HTN and recent craniotomy (05/03/2017) for brain tumor biopsy brought back because of worsening lethargy since discharged from [facility] a week ago. (1) UTI (urinary tract infection) WBC still elevated, cont abx urine culture grew ESBL E Coli sensitive to Meropenem, resistant to Ceftriaxone ID consult with Dr Au (2) Brain tumor result of biopsy is pending Dr Butt, neurosurgical consult, recommended no surgical procedure. 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 He suggested discussion with family end of life care Dr Ash, oncology consult waiting for official report of biopsy neuro consult with Dr Dawson appreciated increase Dexamethasone 6mg IV q 8hrs. keep Na level at 145 by infusing Hypertonic solution 3% Keppra 500mg IV q 12hrs PICC line insertion by IR Amantadine 100mg PO BID (3) HTN (hypertension) BP stable. off medication. continue monitoring BP (4) DVT prophylaxis venodyne boots while in bed. avoid anticoauglants and anti platelets because of recent craniotomy
--- NOTE | 2017-05-16 11:45 | VASCULAR ---
PROCEDURE: Date of procedure: 05/15/2017 Procedure: 1. Placement of a left arm PICC with ultrasound and fluoroscopic guidance, CPT 34119 2. PICC tip confirmation with spot radiograph and is in the superior vena cava Medications: 1 percent lidocaine Total Fluoro time: 2.5 seconds Radiation: 0.19 MGy EBL: 3 cc HISTORY: Infection requiring long-term IV antibiotics TECHNIQUE: Following informed consent and procedure time-out, the patient placed supine on the interventional table and the left arm prepped and draped in the usual sterile fashion. Ultrasound showed a patent and compressible left basilic vein. After the skin was anesthetized with lidocaine, the basilic vein was accessed with micro micropuncture technique using ultrasound guidance. A guidewire was then advanced under fluoroscopic guidance into the superior vena cava. An image documenting ultrasound guidance for vascular access was permanently saved. The length of a single-lumen 4 [place] PICC was trimmed to 39 cm and advanced through a peel-away sheath. The PICC was position with tip of PICC confirm a spot radiograph the superior vena cava. The PICC was secured to the patient's skin. The PICC was flushed. A biopatch and sterile dressing was applied. IMPRESSION: Placement of a single-lumen 4 [place] PICC left basilic vein trimmed to 39 cm. The tip of the PICC is confirmed with spot radiograph and is in the superior vena cava.
[2017-05-16] MEDS: Sodium Chloride 3% 500 ML IV SCH (18:51)
--- NOTE | 2017-05-16 20:09 | CP.PCM.PN ---
Subjective - Date & Time of Evaluation Date of Evaluation: 05/16/17 Time of Evaluation: 12:00 - Subjective Subjective: Appear comfortable, family reports slight improvement Discussed path report at length and treatment with the patients sons and Objective - Vital Signs/Intake and Output Vital Signs (last 24 hours): Temp Pulse Resp BP Pulse Ox 97.7 F 71 20 150/76 98 05/16/17 19:23 05/16/17 19:23 05/16/17 19:23 05/16/17 19:23 05/16/17 19:23 Intake and Output: 05/16/17 05/17/17 18:59 06:59 Intake Total 1320 Output Total 800 Balance 520 - Medications Medications: Current Medications Acetaminophen (Tylenol 650 Mg Supp) 650 mg [place] Q6 PRN PRN Reason: Headache Last Admin: 05/14/17 16:15 Dose: 650 mg Amantadine HCl (Amantadine 100 Mg Cap) 100 mg PO BID [facility] Last Admin: 05/16/17 17:44 Dose: 100 mg Levetiracetam 500 mg/ Sodium (Chloride) 105 mls @ 210 mls/hr IVPB Q12 [facility] Last Admin: 05/16/17 09:06 Dose: 210 mls/hr Meropenem 1 gm/ Sodium (Chloride) 100 mls @ 100 mls/hr IVPB Q8 [facility] Last Admin: 05/16/17 17:49 Dose: 100 mls/hr Dexamethasone 6 mg/ Sodium (Chloride) 51.5 mls @ 103 mls/hr IVPB 0000,0600,1200 ,1800 [facility] Last Admin: 05/16/17 18:56 Dose: 103 mls/hr - Labs Labs: 05/16/17 08:51 05/16/17 16:40 PT 11.5 Seconds (9.8-13.1) 05/13/17 12:45 INR 1.1 (0.9-1.2) 05/13/17 12:45 APTT 24.2 Seconds (25.6-37.1) L 05/13/17 12:45 - Eye Exam Eye Exam: Normal appearance - ENT Exam ENT Exam: Mucous Membranes Dry - Cardiovascular Exam Cardiovascular Exam: +S1, +S2 - GI/Abdominal Exam GI & Abdominal Exam: Normal Bowel Sounds - Extremities Exam Extremities Exam: Normal Inspection Assessment and Plan (1) Glioblastoma Assessment & Plan: discussed treatment options with the patients and sons which would include temozolomide based chemotherapy with radiation. They would like to think about it. Will cont. to follow with you. Status: Acute
[2017-05-17] MEDS: Meropenem 1 GM in Sodium Chloride 0.9% 100 ML IVPB SCH ×3 (00:44→18:17)
[2017-05-17] MEDS: Dexamethasone 6 MG in Sodium Chloride 0.9% 50 ML IVPB SCH ×5 (05:08→23:34)
[2017-05-17] MEDS: Sodium Chloride 3% 500 ML IV SCH ×2 (06:44→18:18)
--- NOTE | 2017-05-17 07:29 | CP.PCM.PN ---
Subjective - Date & Time of Evaluation Date of Evaluation: 05/17/17 Time of Evaluation: 07:29 - Subjective Subjective: patient resting comfortably in bed no acute events overnight UCx ESBL+ sensitive to Merrem Family discussing considering hospice afebrile, +WBC 14.9 today HD stable NAD Objective - Vital Signs/Intake and Output Vital Signs (last 24 hours): Temp Pulse Resp BP Pulse Ox 98.2 F 69 18 145/76 99 05/17/17 05:13 05/17/17 05:13 05/17/17 05:13 05/17/17 05:13 05/17/17 05:13 GEN: awake, thin alert HEENT: NCAT, PERRL, EOMI NECK: supple, no JVD, no lymphadenopathy CARDIAC: +S1S2 RRR LUNG: CTAB No WRR ABD: SOFT NT ND BSX4 NO MASSES NO HSM EXT: +pedal pulses, SKIN warm, dry PSYCH unable to assess , appears to be in no distress Intake and Output: 05/17/17 05/17/17 06:59 18:59 Intake Total 2040 Output Total 1400 Balance 640 - Medications Medications: Current Medications Acetaminophen (Tylenol 650 Mg Supp) 650 mg [place] Q6 PRN PRN Reason: Headache Last Admin: 05/14/17 16:15 Dose: 650 mg Amantadine HCl (Amantadine 100 Mg Cap) 100 mg PO BID [facility] Last Admin: 05/16/17 17:44 Dose: 100 mg Levetiracetam 500 mg/ Sodium (Chloride) 105 mls @ 210 mls/hr IVPB Q12 [facility] Last Admin: 05/16/17 21:00 Dose: 210 mls/hr Meropenem 1 gm/ Sodium (Chloride) 100 mls @ 100 mls/hr IVPB Q8 [facility] Last Admin: 05/17/17 00:44 Dose: 100 mls/hr Dexamethasone 6 mg/ Sodium (Chloride) 51.5 mls @ 103 mls/hr IVPB 0000,0600,1200 ,1800 [facility] Last Admin: 05/17/17 05:08 Dose: 103 mls/hr Sodium Chloride (Hypertonic Saline 3%) 500 mls @ 30 mls/hr IV .[id number] [facility] Stop: 05/18/17 01:31 Last Admin: 05/17/17 06:44 Dose: Not Given - Labs Labs: 05/16/17 08:51 05/17/17 00:30 PT 11.5 Seconds (9.8-13.1) 05/13/17 12:45 INR 1.1 (0.9-1.2) 05/13/17 12:45 APTT 24.2 Seconds (25.6-37.1) L 05/13/17 12:45 Assessment and Plan - Assessment and Plan (Free Text) Plan: 62 yo female with history of HTN and recent craniotomy (05/03/2017) for brain tumor biopsy brought back because of worsening lethargy since discharged from [facility] a week ago. Patient seen by infectious disease for UTI ESBL+ on Merrem, Dr. Mihir Montalvo for Glioblastoma, discussed with family at length regarding potential treatment options vs. hospice consideration. Neurology Dr. Dawson consult appreciated and followed as well, pt on hypertonic solution goal Na 145-150, +amantadine, Keppra, and Dexamethasone. (1) UTI (urinary tract infection) WBC still elevated, cont abx urine culture grew ESBL E Coli sensitive to Meropenem, resistant to Ceftriaxone ID consult with Dr Au (2) Brain tumor result of biopsy is pending Dr Butt, neurosurgical consult, recommended no surgical procedure. 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 He suggested discussion with family end of life care Dr Ash, oncology consult waiting for official report of biopsy neuro consult with Dr Dawson appreciated increase Dexamethasone 6mg IV q 8hrs. keep Na level at 145 by infusing Hypertonic solution 3% Keppra 500mg IV q 12hrs PICC line insertion by IR Amantadine 100mg PO BID (3) HTN (hypertension) BP stable. off medication. continue monitoring BP (4) DVT prophylaxis venodyne boots while in bed. avoid anticoauglants and anti platelets because of recent craniotomy
[2017-05-17 07:45] LABS: BASO % 0.1 % (0.0-2.0); HEMATOCRIT 41.3 % (34.0-47.0); LYMPH # 1.1 K/uL (1.0-4.3); LYMPH % 7.3 % (20.0-40.0); MEAN CELL VOLUME 90.2 fl (81.0-99.0); MEAN CORPUSCULAR HEMOGLOBIN 29.8 pg (27.0-31.0); MEAN PLATELET VOLUME 8.4 fl (7.2-11.7); MONO # 0.3 K/uL (0.0-0.8); NEUT # 13.5 K/uL (1.8-7.0); NEUT % 90.6 % (50.0-75.0); PLATELET COUNT 207 K/uL (130-400); RED CELL DISTRIBUTION WIDTH 13.1 % (11.5-14.5); WHITE BLOOD COUNT 14.9 K/uL (4.8-10.8)
[2017-05-17 08:46] LABS: NEUTROPHIL 93 % (42-75); TOTAL CELLS COUNTED 100
--- NOTE | 2017-05-17 10:03 | CP.PCM.PN ---
Subjective - Date & Time of Evaluation Date of Evaluation: 05/17/17 Time of Evaluation: 10:01 - Subjective Subjective: Ms. Espinoza was seen and examined at the bedside. She is more responsive to both verbal and tactile stimuli. She is able to eat and drink with no signs and symptoms of aspirations. There was no untoward events overnight. She is not in any acute distress. Objective - Vital Signs/Intake and Output Vital Signs (last 24 hours): Temp Pulse Resp BP Pulse Ox 97.5 F L 61 20 145/83 97 05/17/17 08:10 05/17/17 08:10 05/17/17 08:10 05/17/17 08:10 05/17/17 08:10 Intake and Output: 05/17/17 05/17/17 06:59 18:59 Intake Total 2040 Output Total 1400 Balance 640 - Medications Medications: Current Medications Acetaminophen (Tylenol 650 Mg Supp) 650 mg [place] Q6 PRN PRN Reason: Headache Last Admin: 05/14/17 16:15 Dose: 650 mg Amantadine HCl (Amantadine 100 Mg Cap) 100 mg PO BID [facility] Last Admin: 05/17/17 09:40 Dose: 100 mg Levetiracetam 500 mg/ Sodium (Chloride) 105 mls @ 210 mls/hr IVPB Q12 [facility] Last Admin: 05/16/17 21:00 Dose: 210 mls/hr Meropenem 1 gm/ Sodium (Chloride) 100 mls @ 100 mls/hr IVPB Q8 [facility] Last Admin: 05/17/17 09:40 Dose: 100 mls/hr Dexamethasone 6 mg/ Sodium (Chloride) 51.5 mls @ 103 mls/hr IVPB 0000,0600,1200 ,1800 [facility] Last Admin: 05/17/17 05:08 Dose: 103 mls/hr Sodium Chloride (Hypertonic Saline 3%) 500 mls @ 30 mls/hr IV .[id number] [facility] Stop: 05/18/17 01:31 Last Admin: 05/17/17 06:44 Dose: Not Given - Labs Labs: 05/17/17 06:55 05/17/17 00:30 PT 11.5 Seconds (9.8-13.1) 05/13/17 12:45 INR 1.1 (0.9-1.2) 05/13/17 12:45 APTT 24.2 Seconds (25.6-37.1) L 05/13/17 12:45 - Constitutional Appears: No Acute Distress - Neurological Exam Neurological Exam: Alert, Awake Neuro motor strength exam: Left Upper Extremity: 5, Right Upper Extremity: 0, Left Lower Extremity: 4, Right Lower Extremity: 0 Additional comments: Neurological improved from previous examination. more responsive to verbal and tactile stimuli. She utters words that still incomprehensible. Assessment and Plan (1) UTI (urinary tract infection) Status: Acute (2) Dehydration Assessment & Plan: Case discussed with Dr. Dawson, with sodium level is not reaching the goal, will start with salt tablets 1 gm PO BID. Continue medical, physical, speech therapies. Called Dr. Medina office for evaluation and possible removal of surgical vicente in the patient's head. Status: Acute
[2017-05-17] MEDS: levETIRAcetam 500 MG in Sodium Chloride 0.9% 100 ML IVPB SCH ×2 (11:30→21:00)
--- NOTE | 2017-05-17 12:57 | CP.PCM.PN ---
Subjective - Date & Time of Evaluation Date of Evaluation: 05/17/17 Time of Evaluation: 12:57 - Subjective Subjective: [place] removed. Incision clean and dry. Bacitracin ointment to be applied. Objective - Vital Signs/Intake and Output Vital Signs (last 24 hours): Temp Pulse Resp BP Pulse Ox 98.7 F 66 20 129/77 98 05/17/17 12:20 05/17/17 12:20 05/17/17 12:20 05/17/17 12:20 05/17/17 12:20 Intake and Output: 05/17/17 05/17/17 06:59 18:59 Intake Total 2040 Output Total 1400 Balance 640 - Medications Medications: Current Medications Acetaminophen (Tylenol 650 Mg Supp) 650 mg [place] Q6 PRN PRN Reason: Headache Last Admin: 05/14/17 16:15 Dose: 650 mg Amantadine HCl (Amantadine 100 Mg Cap) 100 mg PO BID [facility] Last Admin: 05/17/17 09:40 Dose: 100 mg Levetiracetam 500 mg/ Sodium (Chloride) 105 mls @ 210 mls/hr IVPB Q12 [facility] Last Admin: 05/17/17 11:30 Dose: 210 mls/hr Meropenem 1 gm/ Sodium (Chloride) 100 mls @ 100 mls/hr IVPB Q8 [facility] Last Admin: 05/17/17 09:40 Dose: 100 mls/hr Dexamethasone 6 mg/ Sodium (Chloride) 51.5 mls @ 103 mls/hr IVPB 0000,0600,1200 ,1800 [facility] Last Admin: 05/17/17 05:08 Dose: 103 mls/hr Sodium Chloride (Hypertonic Saline 3%) 500 mls @ 30 mls/hr IV .[id number] [facility] Stop: 05/18/17 01:31 Last Admin: 05/17/17 06:44 Dose: Not Given Sodium Chloride (Sodium Chloride Tab) 1 gm PO BID [facility] Last Admin: 05/17/17 11:33 Dose: 1 gm - Labs Labs: 05/17/17 06:55 05/17/17 08:53 PT 11.5 Seconds (9.8-13.1) 05/13/17 12:45 INR 1.1 (0.9-1.2) 05/13/17 12:45 APTT 24.2 Seconds (25.6-37.1) L 05/13/17 12:45
[2017-05-17] MEDS: Bacitracin OINT 15GM TOP SCH (17:40)
[2017-05-18] MEDS: Meropenem 1 GM in Sodium Chloride 0.9% 100 ML IVPB SCH ×3 (01:12→17:57)
[2017-05-18] MEDS: Dexamethasone 6 MG in Sodium Chloride 0.9% 50 ML IVPB SCH ×3 (05:14→17:58)
[2017-05-18] MEDS: Bacitracin OINT 15GM TOP SCH ×2 (09:39→17:54)
[2017-05-18] MEDS: levETIRAcetam 500 MG in Sodium Chloride 0.9% 100 ML IVPB SCH ×2 (09:39→21:31)
[2017-05-18 11:09] LABS: BLOOD UREA NITROGEN 16 mg/dl (7-17); CALCIUM 9.1 mg/dL (8.4-10.2); CARBON DIOXIDE 24 mmol/L (22-30); CHLORIDE 104 mmol/L (98-107); GFR AFRICAN-AMERICAN > 60; GLUCOSE,RANDOM 163 mg/dL (65-105); SODIUM 142 mmol/l (132-148)
[2017-05-18 11:12] LABS: POTASSIUM 3.8 MMOL/L (3.6-5.0)
--- NOTE | 2017-05-18 11:46 | CP.PCM.PN ---
Subjective - Date & Time of Evaluation Date of Evaluation: 05/18/17 Time of Evaluation: 11:43 - Subjective Subjective: Ms. Espinoza was seen and examined at the bedside. She can utter few words in their own language and son was able to comprehend. She response with some nodding of her head. She continue to improve her appetite. There was no untoward events overnight. Objective - Vital Signs/Intake and Output Vital Signs (last 24 hours): Temp Pulse Resp BP Pulse Ox 98.5 F 64 20 164/81 H 100 05/18/17 08:17 05/18/17 08:17 05/18/17 08:17 05/18/17 08:17 05/18/17 08:17 Intake and Output: 05/18/17 05/18/17 06:59 18:59 Intake Total 640 Output Total 600 Balance 40 - Medications Medications: Current Medications Acetaminophen (Tylenol 650 Mg Supp) 650 mg [place] Q6 PRN PRN Reason: Headache Last Admin: 05/14/17 16:15 Dose: 650 mg Amantadine HCl (Amantadine 100 Mg Cap) 100 mg PO BID [facility] Last Admin: 05/18/17 09:34 Dose: 100 mg Bacitracin (Bacitracin Oint) 1 applic TOP BID [facility] Last Admin: 05/18/17 09:39 Dose: 1 applic Levetiracetam 500 mg/ Sodium (Chloride) 105 mls @ 210 mls/hr IVPB Q12 [facility] Last Admin: 05/18/17 09:39 Dose: 210 mls/hr Meropenem 1 gm/ Sodium (Chloride) 100 mls @ 100 mls/hr IVPB Q8 [facility] Last Admin: 05/18/17 09:35 Dose: 100 mls/hr Dexamethasone 6 mg/ Sodium (Chloride) 51.5 mls @ 103 mls/hr IVPB 0000,0600,1200 ,1800 [facility] Last Admin: 05/18/17 05:14 Dose: 103 mls/hr Sodium Chloride (Sodium Chloride Tab) 1 gm PO BID [facility] Last Admin: 05/18/17 09:34 Dose: 1 gm - Labs Labs: 05/17/17 06:55 05/18/17 09:25 PT 11.5 Seconds (9.8-13.1) 05/13/17 12:45 INR 1.1 (0.9-1.2) 05/13/17 12:45 APTT 24.2 Seconds (25.6-37.1) L 05/13/17 12:45 - Constitutional Appears: No Acute Distress - Neurological Exam Neurological Exam: Awake Neuro motor strength exam: Left Upper Extremity: 4, Right Upper Extremity: 0, Left Lower Extremity: 4, Right Lower Extremity: 0 Additional comments: Neurological improved from previous examination. She is able to respond when there is verbal or tactile stimuli. She is able to eat and drink without any signs of aspiration. Assessment and Plan (1) UTI (urinary tract infection) Status: Acute (2) Dehydration Assessment & Plan: Case discussed with Dr. Dawson, continue current medical, physical, occupational , and speech therapies. Will discontinue hypertonic IV solution and continue with salt tablets. Status: Acute
--- NOTE | 2017-05-18 13:04 | CP.PCM.PN ---
Subjective - Date & Time of Evaluation Date of Evaluation: 05/18/17 Time of Evaluation: 10:30 - Subjective Subjective: Clinically improved, more awake Son reports she is verbalizing Objective - Vital Signs/Intake and Output Vital Signs (last 24 hours): Temp Pulse Resp BP Pulse Ox 98.5 F 70 20 146/80 99 05/18/17 12:00 05/18/17 12:00 05/18/17 12:00 05/18/17 12:00 05/18/17 12:00 Intake and Output: 05/18/17 05/18/17 06:59 18:59 Intake Total 640 Output Total 600 Balance 40 - Medications Medications: Current Medications Acetaminophen (Tylenol 650 Mg Supp) 650 mg [place] Q6 PRN PRN Reason: Headache Last Admin: 05/14/17 16:15 Dose: 650 mg Amantadine HCl (Amantadine 100 Mg Cap) 100 mg PO BID [facility] Last Admin: 05/18/17 09:34 Dose: 100 mg Bacitracin (Bacitracin Oint) 1 applic TOP BID [facility] Last Admin: 05/18/17 09:39 Dose: 1 applic Levetiracetam 500 mg/ Sodium (Chloride) 105 mls @ 210 mls/hr IVPB Q12 [facility] Last Admin: 05/18/17 09:39 Dose: 210 mls/hr Meropenem 1 gm/ Sodium (Chloride) 100 mls @ 100 mls/hr IVPB Q8 [facility] Last Admin: 05/18/17 09:35 Dose: 100 mls/hr Dexamethasone 6 mg/ Sodium (Chloride) 51.5 mls @ 103 mls/hr IVPB 0000,0600,1200 ,1800 [facility] Last Admin: 05/18/17 05:14 Dose: 103 mls/hr Sodium Chloride (Sodium Chloride Tab) 1 gm PO BID [facility] Last Admin: 05/18/17 09:34 Dose: 1 gm - Labs Labs: 05/17/17 06:55 05/18/17 09:25 PT 11.5 Seconds (9.8-13.1) 05/13/17 12:45 INR 1.1 (0.9-1.2) 05/13/17 12:45 APTT 24.2 Seconds (25.6-37.1) L 05/13/17 12:45 - Eye Exam Eye Exam: Normal appearance - ENT Exam ENT Exam: Mucous Membranes Dry - Respiratory Exam Respiratory Exam: NORMAL BREATHING PATTERN - Cardiovascular Exam Cardiovascular Exam: +S1, +S2 - GI/Abdominal Exam GI & Abdominal Exam: Normal Bowel Sounds - Extremities Exam Extremities Exam: Normal Inspection Assessment and Plan (1) Glioblastoma Assessment & Plan: rediscussed treatment options pts son wants to think about things after speaking to family Status: Acute
--- NOTE | 2017-05-18 13:59 | CP.PCM.PN ---
Subjective - Date & Time of Evaluation Date of Evaluation: 05/18/17 Time of Evaluation: 09:00 - Subjective Subjective: No fever answered back " good morning :" to my greeting denies pain serum Osm - greater than 300 Objective - Vital Signs/Intake and Output Vital Signs (last 24 hours): Temp Pulse Resp BP Pulse Ox 98.5 F 70 20 146/80 99 05/18/17 12:00 05/18/17 12:00 05/18/17 12:00 05/18/17 12:00 05/18/17 12:00 Intake and Output: 05/18/17 05/18/17 06:59 18:59 Intake Total 640 Output Total 600 Balance 40 - Medications Medications: Current Medications Acetaminophen (Tylenol 650 Mg Supp) 650 mg [place] Q6 PRN PRN Reason: Headache Last Admin: 05/14/17 16:15 Dose: 650 mg Amantadine HCl (Amantadine 100 Mg Cap) 100 mg PO BID [facility] Last Admin: 05/18/17 09:34 Dose: 100 mg Bacitracin (Bacitracin Oint) 1 applic TOP BID [facility] Last Admin: 05/18/17 09:39 Dose: 1 applic Levetiracetam 500 mg/ Sodium (Chloride) 105 mls @ 210 mls/hr IVPB Q12 [facility] Last Admin: 05/18/17 09:39 Dose: 210 mls/hr Meropenem 1 gm/ Sodium (Chloride) 100 mls @ 100 mls/hr IVPB Q8 [facility] Last Admin: 05/18/17 09:35 Dose: 100 mls/hr Dexamethasone 6 mg/ Sodium (Chloride) 51.5 mls @ 103 mls/hr IVPB 0000,0600,1200 ,1800 [facility] Last Admin: 05/18/17 05:14 Dose: 103 mls/hr Sodium Chloride (Sodium Chloride Tab) 1 gm PO BID [facility] Last Admin: 05/18/17 09:34 Dose: 1 gm - Labs Labs: 05/17/17 06:55 05/18/17 09:25 PT 11.5 Seconds (9.8-13.1) 05/13/17 12:45 INR 1.1 (0.9-1.2) 05/13/17 12:45 APTT 24.2 Seconds (25.6-37.1) L 05/13/17 12:45 - Constitutional Appears: No Acute Distress - Head Exam Head Exam: NORMOCEPHALIC - Eye Exam Eye Exam: EOMI, Normal appearance Pupil Exam: NORMAL ACCOMODATION - ENT Exam ENT Exam: Mucous Membranes Moist, Normal External Ear Exam - Neck Exam Neck Exam: Full ROM. absent: Meningismus - Respiratory Exam Respiratory Exam: NORMAL BREATHING PATTERN. absent: Respiratory Distress - Cardiovascular Exam Cardiovascular Exam: REGULAR RHYTHM, +S1, +S2 - GI/Abdominal Exam GI & Abdominal Exam: Soft, Normal Bowel Sounds. absent: Tenderness - Extremities Exam Extremities Exam: Normal Capillary Refill. absent: Calf Tenderness, Pedal Edema - Back Exam Back Exam: absent: CVA tenderness (L), CVA tenderness (R) - Neurological Exam Neurological Exam: Alert, Awake Neuro motor strength exam: Left Upper Extremity: 5, Right Upper Extremity: 0, Left Lower Extremity: 5, Right Lower Extremity: 0 Additional comments: oriented to person and place - Psychiatric Exam Psychiatric exam: Flat Affect - Skin Skin Exam: Dry, Normal Color, Warm Assessment and Plan - Assessment and Plan (Free Text) Assessment: 62 yo female with history of HTN and recent craniotomy (05/03/2017) for brain tumor biopsy brought back because of worsening lethargy since discharge from [facility] a week ago. Patient seen by infectious disease for UTI ESBL + on Merrem, Dr. Mihir Montalvo for Glioblastoma, discussed with family at length regarding potential treatment options vs. hospice consideration. Neurology Dr. Dawson consulted. On Salt tablet- Goal : Na 145-150, and Osm greater than 300. Also on Amantadine, Keppra, and Dexamethasone. (1) UTI (urinary tract infection) ESBL E coli urine culture grew ESBL E Coli sensitive to Meropenem, resistant to Ceftriaxone ID consulted : Dr Au (2) Brain tumor ( Glioblastoma) Dr Butt, neurosurgical consult, recommended no further surgical intervention, poor prognosis. He suggested discussion with family end of life care Dr Ash, oncology consult waiting for official report of biopsy Neuro consulted: Dr Dawson Increased Dexamethasone 6mg IV q 8hrs. keep Na level at 145 with Salt Tablets to decrease ICP, Off 3% IV Keppra 500mg IV q 12hrs for seizure proph PICC line insertion by IR Amantadine 100mg PO BID to improve mental status (3) HTN (hypertension) BP stable. off medication. continue monitoring BP (4) DVT prophylaxis venodyne boots while in bed. avoid anticoagulants and anti platelets because of recent craniotomy
[2017-05-19] MEDS: Meropenem 1 GM in Sodium Chloride 0.9% 100 ML IVPB SCH ×3 (00:43→17:21)
[2017-05-19] MEDS: Dexamethasone 6 MG in Sodium Chloride 0.9% 50 ML IVPB SCH ×4 (00:43→17:21)
[2017-05-19] MEDS: Bacitracin OINT 15GM TOP SCH ×2 (09:18→17:21)
[2017-05-19] MEDS: levETIRAcetam 500 MG in Sodium Chloride 0.9% 100 ML IVPB SCH ×2 (09:24→20:36)
--- NOTE | 2017-05-19 11:26 | CP.PCM.PN ---
Subjective - Date & Time of Evaluation Date of Evaluation: 05/19/17 Time of Evaluation: 11:00 - Subjective Subjective: Pt is oriented to person and place - able to same name and hospital however after these 2 questions , she did not answer anymore and wouldnt follow simple commands No fever 2 sons at bedside, they state that even when they speak with their mother in their own language , she wouldnt answer all their questions. Discussed treatment plan w/c pt's sons They are still undecided about the Radiation and Chemotherapy Objective - Vital Signs/Intake and Output Vital Signs (last 24 hours): Temp Pulse Resp BP Pulse Ox 97.5 F L 62 20 132/84 99 05/19/17 05:54 05/19/17 05:54 05/19/17 05:54 05/19/17 05:54 05/19/17 05:54 - Medications Medications: Current Medications Acetaminophen (Tylenol 650 Mg Supp) 650 mg [place] Q6 PRN PRN Reason: Headache Last Admin: 05/14/17 16:15 Dose: 650 mg Amantadine HCl (Amantadine 100 Mg Cap) 100 mg PO BID [facility] Last Admin: 05/19/17 09:18 Dose: 100 mg Bacitracin (Bacitracin Oint) 1 applic TOP BID [facility] Last Admin: 05/19/17 09:18 Dose: 1 applic Levetiracetam 500 mg/ Sodium (Chloride) 105 mls @ 210 mls/hr IVPB Q12 [facility] Last Admin: 05/19/17 09:24 Dose: 210 mls/hr Meropenem 1 gm/ Sodium (Chloride) 100 mls @ 100 mls/hr IVPB Q8 [facility] Last Admin: 05/19/17 09:23 Dose: 100 mls/hr Dexamethasone 6 mg/ Sodium (Chloride) 51.5 mls @ 103 mls/hr IVPB 0000,0600,1200 ,1800 [facility] Last Admin: 05/19/17 06:21 Dose: 103 mls/hr Sodium Chloride (Sodium Chloride Tab) 1 gm PO BID [facility] Last Admin: 05/19/17 09:18 Dose: 1 gm - Labs Labs: 05/17/17 06:55 05/18/17 09:25 PT 11.5 Seconds (9.8-13.1) 05/13/17 12:45 INR 1.1 (0.9-1.2) 05/13/17 12:45 APTT 24.2 Seconds (25.6-37.1) L 05/13/17 12:45 - Constitutional Appears: No Acute Distress - Head Exam Head Exam: NORMOCEPHALIC - Eye Exam Eye Exam: EOMI, Normal appearance Pupil Exam: NORMAL ACCOMODATION - ENT Exam ENT Exam: Mucous Membranes Moist, Normal External Ear Exam - Neck Exam Neck Exam: Full ROM. absent: Meningismus - Respiratory Exam Respiratory Exam: NORMAL BREATHING PATTERN. absent: Respiratory Distress - Cardiovascular Exam Cardiovascular Exam: REGULAR RHYTHM, +S1, +S2 - GI/Abdominal Exam GI & Abdominal Exam: Soft, Normal Bowel Sounds. absent: Tenderness - Extremities Exam Extremities Exam: Normal Capillary Refill. absent: Calf Tenderness, Pedal Edema - Back Exam Back Exam: absent: CVA tenderness (L), CVA tenderness (R) - Neurological Exam Neurological Exam: Alert, Awake Neuro motor strength exam: Left Upper Extremity: 5, Right Upper Extremity: 0, Left Lower Extremity: 5, Right Lower Extremity: 0 Additional comments: oriented to person and place - Psychiatric Exam Psychiatric exam: Flat Affect - Skin Skin Exam: Dry, Normal Color, Warm Assessment and Plan - Assessment and Plan (Free Text) Assessment: 62 yo female with history of HTN and recent craniotomy (05/03/2017) for brain tumor biopsy brought by family to the ED because of worsening lethargy since discharge from [facility] a week ago. Patient seen by infectious disease for UTI ESBL + [facility] Merrem[facility] discussed with family at length regarding potential treatment options vs. hospice consideration. Neurology Dr. Dawson consulted. On Salt tablet- Goal : Na 145- 150, and Osm greater than 300. Also on Amantadine, Keppra, and Dexamethasone. (1) UTI (urinary tract infection) ESBL E coli urine culture grew ESBL E Coli sensitive to Meropenem, resistant to Ceftriaxone ID consulted : Dr Au cont Meropenem leukocytosis due to steroid, pt is afebrile (2) Brain tumor ( Glioblastoma) Dr Butt, neurosurgical consult, recommended no further surgical intervention, poor prognosis. He suggested discussion with family end of life care Dr Ash, oncology consulted - rec Palliative Radiation and chemotherapy- family still undecided and will speak with Dr Ash again Neuro consulted: Dr Dawson Increased Dexamethasone 6mg IV q 8hrs. keep Na level at 145 with Salt Tablets to decrease ICP, Off 3% ( hypertonic soln) IV Keppra 500mg IV q 12hrs for seizure proph PICC line insertion by IR Amantadine 100mg PO BID to improve mental status (3) HTN (hypertension) BP stable. off medication. continue monitoring BP (4) DVT prophylaxis venodyne boots while in bed. avoid anticoagulants and anti platelets because of recent craniotomy
[2017-05-20] MEDS: Dexamethasone 6 MG in Sodium Chloride 0.9% 50 ML IVPB SCH ×4 (00:05→17:30)
[2017-05-20] MEDS: Meropenem 1 GM in Sodium Chloride 0.9% 100 ML IVPB SCH ×3 (01:08→16:45)
[2017-05-20 06:53] LABS: MEAN CORPUSCULAR HEMOGLOBIN 30.3 pg (27.0-31.0); MEAN CORPUSCULAR HGB CONC 33.3 g/dL (33.0-37.0); RED CELL DISTRIBUTION WIDTH 13.3 % (11.5-14.5); WHITE BLOOD COUNT 11.8 K/uL (4.8-10.8)
[2017-05-20 07:09] LABS: BLOOD UREA NITROGEN 16 mg/dl (7-17); CALCIUM 8.6 mg/dL (8.4-10.2); CARBON DIOXIDE 24 mmol/L (22-30); CHLORIDE 100 mmol/L (98-107); GFR AFRICAN-AMERICAN > 60; GLUCOSE,RANDOM 147 mg/dL (65-105); POTASSIUM 4.5 MMOL/L (3.6-5.0); SODIUM 134 mmol/l (132-148)
[2017-05-20] MEDS: levETIRAcetam 500 MG in Sodium Chloride 0.9% 100 ML IVPB SCH ×2 (09:08→21:53)
[2017-05-20] MEDS: Bacitracin OINT 15GM TOP SCH ×2 (09:09→16:46)
--- NOTE | 2017-05-20 11:38 | CP.PCM.PN ---
Subjective - Date & Time of Evaluation Date of Evaluation: 05/20/17 Time of Evaluation: 10:45 - Subjective Subjective: Pt seen and examined - spouse at bedside Pt is awake, alert follows simple commands denies HOFFMAN no CP no abd pain Objective - Vital Signs/Intake and Output Vital Signs (last 24 hours): Temp Pulse Resp BP Pulse Ox 97.7 F 64 18 120/79 99 05/20/17 00:10 05/20/17 00:10 05/20/17 00:10 05/20/17 00:10 05/20/17 00:10 - Medications Medications: Current Medications Acetaminophen (Tylenol 650 Mg Supp) 650 mg [place] Q6 PRN PRN Reason: Headache Last Admin: 05/14/17 16:15 Dose: 650 mg Amantadine HCl (Amantadine 100 Mg Cap) 100 mg PO BID [facility] Last Admin: 05/20/17 09:08 Dose: 100 mg Bacitracin (Bacitracin Oint) 1 applic TOP BID [facility] Last Admin: 05/20/17 09:09 Dose: 1 applic Hydrocortisone (Hydrocortisone Lotion 2.5%) 1 applic TP BID [facility] Levetiracetam 500 mg/ Sodium (Chloride) 105 mls @ 210 mls/hr IVPB Q12 [facility] Last Admin: 05/20/17 09:08 Dose: 210 mls/hr Meropenem 1 gm/ Sodium (Chloride) 100 mls @ 100 mls/hr IVPB Q8 [facility] Last Admin: 05/20/17 09:07 Dose: 100 mls/hr Dexamethasone 6 mg/ Sodium (Chloride) 51.5 mls @ 103 mls/hr IVPB 0000,0600,1200 ,1800 [facility] Last Admin: 05/20/17 05:56 Dose: 103 mls/hr Sodium Chloride (Sodium Chloride Tab) 1 gm PO BID [facility] Last Admin: 05/20/17 09:08 Dose: 1 gm - Labs Labs: 05/20/17 05:30 05/20/17 05:30 PT 11.5 Seconds (9.8-13.1) 05/13/17 12:45 INR 1.1 (0.9-1.2) 05/13/17 12:45 APTT 24.2 Seconds (25.6-37.1) L 05/13/17 12:45 - Constitutional Appears: No Acute Distress - Head Exam Head Exam: NORMOCEPHALIC - Eye Exam Eye Exam: EOMI, Normal appearance Pupil Exam: NORMAL ACCOMODATION - ENT Exam ENT Exam: Mucous Membranes Moist, Normal External Ear Exam - Neck Exam Neck Exam: Full ROM. absent: Meningismus - Respiratory Exam Respiratory Exam: NORMAL BREATHING PATTERN. absent: Respiratory Distress - Cardiovascular Exam Cardiovascular Exam: REGULAR RHYTHM, +S1, +S2 - GI/Abdominal Exam GI & Abdominal Exam: Soft, Normal Bowel Sounds. absent: Tenderness - Extremities Exam Extremities Exam: Normal Capillary Refill. absent: Calf Tenderness, Pedal Edema - Back Exam Back Exam: absent: CVA tenderness (L), CVA tenderness (R) - Neurological Exam Neurological Exam: Alert, Awake Neuro motor strength exam: Left Upper Extremity: 5, Right Upper Extremity: 0, Left Lower Extremity: 5, Right Lower Extremity: 0 Additional comments: oriented to person and place - Psychiatric Exam Psychiatric exam: Flat Affect - Skin Skin Exam: Dry, Normal Color, Warm Assessment and Plan - Assessment and Plan (Free Text) Assessment: 62 yo female with history of HTN and recent craniotomy (05/03/2017) for brain tumor biopsy brought by family to the ED because of worsening lethargy since discharge from [facility] a week ago. Patient seen by infectious disease for UTI ESBL + on Merrem, Dr. Mihir Daniel for Glioblastoma, discussed with family at length regarding potential treatment options vs. hospice consideration. Neurology Dr. Dawson consulted. On Salt tablet- Goal : Na 145- 150, and Osm greater than 300. Also on Amantadine, Keppra, and Dexamethasone. (1) UTI (urinary tract infection) ESBL E coli urine culture grew ESBL E Coli sensitive to Meropenem, resistant to Ceftriaxone ID consulted : Dr Au cont Meropenem Day 6 leukocytosis likely due to steroids, pt is afebrile (2) Brain tumor ( Glioblastoma) Dr Butt, neurosurgical consult, recommended no further surgical intervention, poor prognosis. He suggested discussion with family end of life care Dr Ash, oncology consulted - rec Palliative Radiation and chemotherapy- family still undecided and will speak with Dr Ash again Neuro consulted: Dr Dawson Increased Dexamethasone 6mg IV q 8hrs. Salt Tablets to decrease ICP, Off 3% ( hypertonic soln) Keppra 500mg IV q 12hrs for seizure proph PICC line in place Amantadine 100mg PO BID to improve mental status (3) HTN (hypertension) BP stable. off medication. continue monitoring BP (4) DVT prophylaxis venodyne boots while in bed. avoid anticoagulants and anti platelets because of recent craniotomy
[2017-05-21] MEDS: Meropenem 1 GM in Sodium Chloride 0.9% 100 ML IVPB SCH ×3 (00:09→16:20)
[2017-05-21] MEDS: Dexamethasone 6 MG in Sodium Chloride 0.9% 50 ML IVPB SCH ×4 (00:10→19:50)
[2017-05-21] MEDS: levETIRAcetam 500 MG in Sodium Chloride 0.9% 100 ML IVPB SCH ×2 (08:58→20:00)
[2017-05-21] MEDS: Bacitracin OINT 15GM TOP SCH ×2 (09:00→18:29)
--- NOTE | 2017-05-21 11:18 | CP.PCM.PN ---
Subjective - Date & Time of Evaluation Date of Evaluation: 05/21/17 Time of Evaluation: 11:17 - Subjective Subjective: Ms. Espinoza was seen and examined at the bedside. She response to both verbal and tactile stimuli. She could utter few clear words such as hi and I'm fine. She is not in any acute distress.There was no untoward events overnight. Objective - Vital Signs/Intake and Output Vital Signs (last 24 hours): Temp Pulse Resp BP Pulse Ox 98.1 F 64 18 134/81 100 05/21/17 08:00 05/21/17 08:00 05/21/17 08:00 05/21/17 08:00 05/21/17 08:00 Intake and Output: 05/21/17 05/21/17 06:59 18:59 Intake Total 300 Output Total 600 Balance -300 - Medications Medications: Current Medications Acetaminophen (Tylenol 650 Mg Supp) 650 mg [place] Q6 PRN PRN Reason: Headache Last Admin: 05/14/17 16:15 Dose: 650 mg Amantadine HCl (Amantadine 100 Mg Cap) 100 mg PO BID [facility] Last Admin: 05/21/17 08:59 Dose: 100 mg Bacitracin (Bacitracin Oint) 1 applic TOP BID [facility] Last Admin: 05/21/17 09:00 Dose: 1 applic Hydrocortisone (Hydrocortisone Lotion 2.5%) 1 applic TP BID [facility] Last Admin: 05/20/17 22:03 Dose: Not Given Levetiracetam 500 mg/ Sodium (Chloride) 105 mls @ 210 mls/hr IVPB Q12 [facility] Last Admin: 05/21/17 08:58 Dose: 210 mls/hr Meropenem 1 gm/ Sodium (Chloride) 100 mls @ 100 mls/hr IVPB Q8 [facility] Last Admin: 05/21/17 08:58 Dose: 100 mls/hr Dexamethasone 6 mg/ Sodium (Chloride) 51.5 mls @ 103 mls/hr IVPB 0000,0600,1200 ,1800 [facility] Last Admin: 05/21/17 07:30 Dose: 103 mls/hr Sodium Chloride (Sodium Chloride Tab) 1 gm PO BID [facility] Last Admin: 05/21/17 08:59 Dose: 1 gm - Labs Labs: 05/20/17 05:30 05/20/17 05:30 PT 11.5 Seconds (9.8-13.1) 05/13/17 12:45 INR 1.1 (0.9-1.2) 05/13/17 12:45 APTT 24.2 Seconds (25.6-37.1) L 05/13/17 12:45 - Constitutional Appears: No Acute Distress - Head Exam Head Exam: ATRAUMATIC, NORMAL INSPECTION, NORMOCEPHALIC - Neurological Exam Neurological Exam: Alert, Awake Neuro motor strength exam: Left Upper Extremity: 5, Right Upper Extremity: 0, Left Lower Extremity: 4, Right Lower Extremity: 0 Additional comments: She is not able to follow simple request such as raising her left arm. She grimaces with painful stimuli. Assessment and Plan (1) UTI (urinary tract infection) Status: Acute (2) Dehydration Assessment & Plan: Case discussed with Dr. Dawson, continue current medical, physical, occupational therapies Status: Acute
--- NOTE | 2017-05-21 14:42 | CP.PCM.PN ---
Subjective - Date & Time of Evaluation Date of Evaluation: 05/21/17 Time of Evaluation: 13:00 - Subjective Subjective: Patient seen and examined bedside. Awake,not following any commands, mumbles , not responding any questions.Holding her head with her left hand Right arm 0/5 Hempodynamically stable, afebrile No acute issues overnight Objective - Vital Signs/Intake and Output Vital Signs (last 24 hours): Temp Pulse Resp BP Pulse Ox 98.1 F 64 18 134/81 100 05/21/17 08:00 05/21/17 08:00 05/21/17 08:00 05/21/17 08:00 05/21/17 08:00 Intake and Output: 05/21/17 05/21/17 06:59 18:59 Intake Total 300 Output Total 600 Balance -300 - Medications Medications: Current Medications Acetaminophen (Tylenol 325mg Tab) 650 mg PO Q6 PRN PRN Reason: Pain, Mild (1-3) Amantadine HCl (Amantadine 100 Mg Cap) 100 mg PO BID [facility] Last Admin: 05/21/17 08:59 Dose: 100 mg Bacitracin (Bacitracin Oint) 1 applic TOP BID [facility] Last Admin: 05/21/17 09:00 Dose: 1 applic Hydrocortisone (Hydrocortisone Lotion 2.5%) 1 applic TP BID [facility] Last Admin: 05/20/17 22:03 Dose: Not Given Levetiracetam 500 mg/ Sodium (Chloride) 105 mls @ 210 mls/hr IVPB Q12 [facility] Last Admin: 05/21/17 08:58 Dose: 210 mls/hr Meropenem 1 gm/ Sodium (Chloride) 100 mls @ 100 mls/hr IVPB Q8 [facility] Last Admin: 05/21/17 08:58 Dose: 100 mls/hr Dexamethasone 6 mg/ Sodium (Chloride) 51.5 mls @ 103 mls/hr IVPB 0000,0600,1200 ,1800 [facility] Last Admin: 05/21/17 07:30 Dose: 103 mls/hr Sodium Chloride (Sodium Chloride Tab) 1 gm PO BID [facility] Last Admin: 05/21/17 08:59 Dose: 1 gm - Labs Labs: 05/20/17 05:30 05/20/17 05:30 PT 11.5 Seconds (9.8-13.1) 05/13/17 12:45 INR 1.1 (0.9-1.2) 05/13/17 12:45 APTT 24.2 Seconds (25.6-37.1) L 05/13/17 12:45 - Constitutional Appears: Non-toxic, No Acute Distress - Head Exam Head Exam: ATRAUMATIC, NORMAL INSPECTION, NORMOCEPHALIC - Eye Exam Eye Exam: EOMI, PERRL - ENT Exam ENT Exam: Mucous Membranes Moist, Normal Exam - Neck Exam Neck Exam: Full ROM, Normal Inspection - Respiratory Exam Respiratory Exam: Clear to Ausculation Bilateral, NORMAL BREATHING PATTERN. absent: Rales, Wheezes, Respiratory Distress - Cardiovascular Exam Cardiovascular Exam: REGULAR RHYTHM, +S1, +S2. absent: JVD - GI/Abdominal Exam GI & Abdominal Exam: Soft, Normal Bowel Sounds. absent: Distended, Guarding, Tenderness, Rebound - Rectal Exam Rectal Exam: Deferred - Extremities Exam Extremities Exam: Full ROM, Normal Inspection. absent: Pedal Edema - Back Exam Back Exam: NORMAL INSPECTION - Neurological Exam Neurological Exam: Alert, Awake Neuro motor strength exam: Left Upper Extremity: 5, Right Upper Extremity: 0, Right Lower Extremity: 0 Additional comments: not responding any questions not following any commands squeezes physician's hand with her left hand - Psychiatric Exam Psychiatric exam: Flat Affect - Skin Skin Exam: Dry, Warm Assessment and Plan - Assessment and Plan (Free Text) Assessment: 62 yo female with history of HTN and recent craniotomy (05/03/2017) for brain tumor biopsy brought by family to the ED because of worsening lethargy since discharge from [facility] a week ago. Patient seen by infectious disease for UTI ESBL + on Merrem, Dr. Mihir Montalvo for Glioblastoma, discussed with family at length regarding potential treatment options vs. hospice consideration. Neurology Dr. Dawson consulted. On Salt tablet- Goal : Na 145- 150, and Osm greater than 300. Also on Amantadine, Keppra, and Dexamethasone. Family would like NH placement since they can not take care of patient at home. 1. UTI (urinary tract infection) ESBL E coli urine culture grew ESBL E Coli sensitive to Meropenem, resistant to Ceftriaxone ID consulted : Dr Au cont Meropenem Day 7 leukocytosis likely due to steroids, pt is afebrile 2.Brain tumor ( Glioblastoma) Dr Butt, neurosurgical consult, recommended no further surgical intervention, poor prognosis. He suggested discussion with family end of life care Dr Ash, oncology consulted - rec Palliative Radiation and chemotherapy- family would like to wait on any further treatment given that patient is very weak and her quality of life will be very poor on radiation and chemo therapy Neuro consulted: Dr Dawson on Dexamethasone 6mg IV q 8hrs. Salt Tablets to decrease ICP, Off 3% ( hypertonic soln) Keppra 500mg IV q 12hrs for seizure proph PICC line in place Amantadine 100mg PO BID to improve mental status 3.HTN (hypertension) BP stable. off medication. continue monitoring BP 4. DVT prophylaxis venodyne boots while in bed. avoid anticoagulants and anti platelets because of recent craniotomy
[2017-05-22] MEDS: Meropenem 1 GM in Sodium Chloride 0.9% 100 ML IVPB SCH ×3 (00:06→16:32)
[2017-05-22] MEDS: Dexamethasone 6 MG in Sodium Chloride 0.9% 50 ML IVPB SCH ×5 (00:06→23:49)
--- NOTE | 2017-05-22 09:02 | CP.PCM.PN ---
Subjective - Date & Time of Evaluation Date of Evaluation: 05/22/17 Time of Evaluation: 08:30 - Subjective Subjective: Patient seen and examined bedside. Lying comfortably in bed but non verbal, not answering questions except saying hello. Hemodynamically stable, afebrile Objective - Vital Signs/Intake and Output Vital Signs (last 24 hours): Temp Pulse Resp BP Pulse Ox 98 F 73 18 168/94 H 99 05/22/17 08:00 05/22/17 08:00 05/22/17 08:00 05/22/17 08:00 05/22/17 08:00 Intake and Output: 05/22/17 05/22/17 06:59 18:59 Intake Total 150 Output Total 1450 Balance -1300 - Medications Medications: Current Medications Acetaminophen (Tylenol 325mg Tab) 650 mg PO Q6 PRN PRN Reason: Pain, Mild (1-3) Amantadine HCl (Amantadine 100 Mg Cap) 100 mg PO BID [facility] Last Admin: 05/21/17 16:19 Dose: Not Given Bacitracin (Bacitracin Oint) 1 applic TOP BID [facility] Last Admin: 05/21/17 18:29 Dose: Not Given Hydrocortisone (Hydrocortisone Lotion 2.5%) 1 applic TP BID [facility] Last Admin: 05/21/17 18:29 Dose: Not Given Levetiracetam 500 mg/ Sodium (Chloride) 105 mls @ 210 mls/hr IVPB Q12 [facility] Last Admin: 05/21/17 20:00 Dose: 210 mls/hr Meropenem 1 gm/ Sodium (Chloride) 100 mls @ 100 mls/hr IVPB Q8 [facility] Last Admin: 05/22/17 00:06 Dose: 100 mls/hr Dexamethasone 6 mg/ Sodium (Chloride) 51.5 mls @ 103 mls/hr IVPB 0000,0600,1200 ,1800 [facility] Last Admin: 05/22/17 05:01 Dose: 103 mls/hr Sodium Chloride (Sodium Chloride Tab) 1 gm PO BID [facility] Last Admin: 05/21/17 19:50 Dose: 1 gm - Labs Labs: 05/20/17 05:30 05/20/17 05:30 PT 11.5 Seconds (9.8-13.1) 05/13/17 12:45 INR 1.1 (0.9-1.2) 05/13/17 12:45 APTT 24.2 Seconds (25.6-37.1) L 05/13/17 12:45 - Constitutional Appears: Non-toxic, No Acute Distress, Confused, Other (not answering questions) - Head Exam Head Exam: ATRAUMATIC, NORMAL INSPECTION - Eye Exam Eye Exam: EOMI, Normal appearance, PERRL Pupil Exam: NORMAL ACCOMODATION - ENT Exam ENT Exam: Mucous Membranes Moist, Normal Exam - Neck Exam Neck Exam: Full ROM, Normal Inspection - Respiratory Exam Respiratory Exam: Clear to Ausculation Bilateral, NORMAL BREATHING PATTERN. absent: Rales, Rhonchi, Wheezes - Cardiovascular Exam Cardiovascular Exam: REGULAR RHYTHM, RRR, +S1, +S2. absent: JVD - GI/Abdominal Exam GI & Abdominal Exam: Soft, Normal Bowel Sounds. absent: Distended, Guarding, Tenderness, Rebound - Rectal Exam Rectal Exam: Deferred - Extremities Exam Extremities Exam: Normal Capillary Refill. absent: Calf Tenderness, Pedal Edema - Neurological Exam Neurological Exam: Alert, Awake Additional comments: not answering questions not moving her right side - Psychiatric Exam Psychiatric exam: Flat Affect - Skin Skin Exam: Dry, Warm Assessment and Plan - Assessment and Plan (Free Text) Assessment: 62 yo female with history of HTN and recent craniotomy (05/03/2017) for brain tumor biopsy brought by family to the ED because of worsening lethargy since discharge from [facility] a week ago. Patient seen by infectious disease for UTI ESBL + on Merrem, Dr. Mihir Montalvo for Glioblastoma, discussed with family at length regarding potential treatment options vs. hospice consideration. Neurology Dr. Dawson consulted. On Salt tablet- Goal : Na 145- 150, and Osm greater than 300. Also on Amantadine, Keppra, and Dexamethasone. Family would like NH placement since they can not take care of patient at home. 1. UTI (urinary tract infection) ESBL E coli urine culture grew ESBL E Coli sensitive to Meropenem, resistant to Ceftriaxone ID consulted : Dr Au cont Meropenem Day 7 ( last day today ) leukocytosis likely due to steroids, pt is afebrile 2.Brain tumor ( Glioblastoma) Dr Butt, neurosurgical consult, recommended no further surgical intervention, poor prognosis. He suggested discussion with family end of life care Dr Ash, oncology consulted - rec Palliative Radiation and chemotherapy- family would like to wait on any further treatment given that patient is very weak and her quality of life will be very poor on radiation and chemo therapy Neuro consulted: Dr Dawson on Dexamethasone 6mg IV q 8hrs. Salt Tablets to decrease ICP, Off 3% ( hypertonic soln) Keppra 500mg IV q 12hrs for seizure proph PICC line in place Amantadine 100mg PO BID to improve mental status 3.HTN (hypertension) BP stable. off medication. continue monitoring BP 4. DVT prophylaxis venodyne boots while in bed. avoid anticoagulants and anti platelets because of recent craniotomy
[2017-05-22] MEDS: Bacitracin OINT 15GM TOP SCH ×2 (09:18→16:34)
[2017-05-22] MEDS: levETIRAcetam 500 MG in Sodium Chloride 0.9% 100 ML IVPB SCH ×2 (09:19→21:40)
--- NOTE | 2017-05-22 09:59 | CP.PCM.PN ---
Subjective - Date & Time of Evaluation Date of Evaluation: 05/22/17 Time of Evaluation: 09:30 - Subjective Subjective: More responsive, son at bedside Objective - Vital Signs/Intake and Output Vital Signs (last 24 hours): Temp Pulse Resp BP Pulse Ox 98 F 73 18 168/94 H 99 05/22/17 08:00 05/22/17 08:00 05/22/17 08:00 05/22/17 08:00 05/22/17 08:00 Intake and Output: 05/22/17 05/22/17 06:59 18:59 Intake Total 150 Output Total 1450 Balance -1300 - Medications Medications: Current Medications Acetaminophen (Tylenol 325mg Tab) 650 mg PO Q6 PRN PRN Reason: Pain, Mild (1-3) Amantadine HCl (Amantadine 100 Mg Cap) 100 mg PO BID [facility] Last Admin: 05/22/17 09:18 Dose: 100 mg Bacitracin (Bacitracin Oint) 1 applic TOP BID [facility] Last Admin: 05/22/17 09:18 Dose: 1 applic Hydrocortisone (Hydrocortisone Lotion 2.5%) 1 applic TP BID [facility] Last Admin: 05/21/17 18:29 Dose: Not Given Levetiracetam 500 mg/ Sodium (Chloride) 105 mls @ 210 mls/hr IVPB Q12 [facility] Last Admin: 05/22/17 09:19 Dose: 210 mls/hr Meropenem 1 gm/ Sodium (Chloride) 100 mls @ 100 mls/hr IVPB Q8 [facility] Last Admin: 05/22/17 09:18 Dose: 100 mls/hr Dexamethasone 6 mg/ Sodium (Chloride) 51.5 mls @ 103 mls/hr IVPB 0000,0600,1200 ,1800 [facility] Last Admin: 05/22/17 05:01 Dose: 103 mls/hr Sodium Chloride (Sodium Chloride Tab) 1 gm PO BID [facility] Last Admin: 05/22/17 09:18 Dose: 1 gm - Labs Labs: 05/20/17 05:30 05/20/17 05:30 PT 11.5 Seconds (9.8-13.1) 05/13/17 12:45 INR 1.1 (0.9-1.2) 05/13/17 12:45 APTT 24.2 Seconds (25.6-37.1) L 05/13/17 12:45 - Head Exam Head Exam: ATRAUMATIC - Eye Exam Eye Exam: Normal appearance - ENT Exam ENT Exam: Mucous Membranes Dry - Respiratory Exam Respiratory Exam: NORMAL BREATHING PATTERN - Cardiovascular Exam Cardiovascular Exam: +S1, +S2 - GI/Abdominal Exam GI & Abdominal Exam: Normal Bowel Sounds - Extremities Exam Extremities Exam: Normal Inspection Assessment and Plan (1) Glioblastoma Assessment & Plan: pt and family still thinking about treatment with chemo+radiation Status: Acute
[2017-05-23] MEDS: Meropenem 1 GM in Sodium Chloride 0.9% 100 ML IVPB SCH ×2 (00:48→09:18)
[2017-05-23 05:05] VITALS: RESP 18
[2017-05-23] MEDS: Dexamethasone 6 MG in Sodium Chloride 0.9% 50 ML IVPB SCH (05:53)
[2017-05-23] MEDS: levETIRAcetam 500 MG in Sodium Chloride 0.9% 100 ML IVPB SCH (09:18)
[2017-05-23] MEDS: Bacitracin OINT 15GM TOP SCH (09:19)
--- NOTE | 2017-05-23 09:57 | CP.PCM.DIS ---
Provider - Provider Date of Admission: 05/13/17 14:18 Attending physician: Ray Morejon MD Primary care physician: none Consults: ID consult Neurosurgery consult hem/ onc consult Neurology consult Time Spent in preparation of Discharge (in minutes): 15 Hospital Course - Lab Results Lab Results: Micro Results 05/13/17 12:00 Blood Blood Culture - Final NO GROWTH AFTER 5 DAYS 05/13/17 12:00 Blood Gram Stain - Final TEST NOT PERFORMED 05/13/17 12:45 Blood Blood Culture - Final NO GROWTH AFTER 5 DAYS 05/13/17 12:45 Blood Gram Stain - Final TEST NOT PERFORMED 05/13/17 14:05 Urine,Saleem Urine Culture - Final Escherichia Coli Most Recent Lab Values WBC 11.8 K/uL (4.8-10.8) H 05/20/17 05:30 RBC 4.95 Mil/uL (3.80-5.20) 05/20/17 05:30 Hgb 15.0 g/dL (12.0-16.0) 05/20/17 05:30 Hct 45.0 % (34.0-47.0) 05/20/17 05:30 MCV 91.0 fl (81.0-99.0) 05/20/17 05:30 MCH 30.3 pg (27.0-31.0) 05/20/17 05:30 MCHC 33.3 g/dL (33.0-37.0) 05/20/17 05:30 RDW 13.3 % (11.5-14.5) 05/20/17 05:30 Plt Count 162 K/uL (130-400) 05/20/17 05:30 MPV 8.4 fl (7.2-11.7) 05/17/17 06:55 Neut % (Auto) 90.6 % (50.0-75.0) H 05/17/17 06:55 Lymph % (Auto) 7.3 % (20.0-40.0) L 05/17/17 06:55 [place] % (Auto) 2.0 % (0.0-10.0) 05/17/17 06:55 Eos % (Auto) 0.0 % (0.0-4.0) 05/17/17 06:55 Baso % (Auto) 0.1 % (0.0-2.0) 05/17/17 06:55 Neut # 13.5 K/uL (1.8-7.0) H 05/17/17 06:55 Lymph # 1.1 K/uL (1.0-4.3) 05/17/17 06:55 [place] # 0.3 K/uL (0.0-0.8) 05/17/17 06:55 Eos # 0.0 K/uL (0.0-0.7) 05/17/17 06:55 Baso # 0.0 K/uL (0.0-0.2) 05/17/17 06:55 Neutrophils % (Manual) 93 % (42-75) H 05/17/17 06:55 Lymphocytes % (Manual) 5 % (20-50) L 05/17/17 06:55 Monocytes % (Manual) 2 % (0-10) 05/17/17 06:55 Eosinophils % (Manual) 1 % (0-7) 05/13/17 12:45 Platelet Estimate Normal (NORMAL) 05/17/17 06:55 Large Platelets Present 05/13/17 12:45 RBC Morphology Normal (NORMAL) 05/17/17 06:55 Poikilocytosis (manual Slight 05/13/17 12:45 Anisocytosis (manual) Slight 05/13/17 12:45 Ovalocytes Slight 05/13/17 12:45 PT 11.5 Seconds (9.8-13.1) 05/13/17 12:45 INR 1.1 (0.9-1.2) 05/13/17 12:45 APTT 24.2 Seconds (25.6-37.1) L 05/13/17 12:45 pO2 38 mm/Hg (30-55) 05/13/17 12:44 VBG pH 7.49 (7.32-7.43) H 05/13/17 12:44 VBG pCO2 38 mmHg (40-60) L 05/13/17 12:44 VBG HCO3 28.6 mmol/L 05/13/17 12:44 VBG Total CO2 30.2 mmol/L (22-28) H 05/13/17 12:44 VBG O2 Sat (Calc) 79.3 % (40-65) H 05/13/17 12:44 VBG Base Excess 5.4 mmol/L (0.0-2.0) H 05/13/17 12:44 Sodium 160.0 mmol/L (132-148) H* 05/13/17 12:44 Chloride 114.0 mmol/L (98-107) H 05/13/17 12:44 Glucose 139 mg/dL (65-105) H 05/13/17 12:44 Lactate 1.2 mmol/L (0.7-2.1) 05/13/17 12:44 FiO2 21.0 % 05/13/17 12:44 Sodium 134 mmol/l (132-148) 05/20/17 05:30 Potassium 4.5 MMOL/L (3.6-5.0) 05/20/17 05:30 Chloride 100 mmol/L (98-107) 05/20/17 05:30 Carbon Dioxide 24 mmol/L (22-30) 05/20/17 05:30 Anion Gap 15 (10-20) 05/20/17 05:30 BUN 16 mg/dl (7-17) 05/20/17 05:30 Creatinine 0.4 mg/dL (0.7-1.2) L 05/20/17 05:30 Est GFR ( Amer) > 60 05/20/17 05:30 Est GFR (Non-Af Amer) > 60 05/20/17 05:30 POC Glucose (mg/dL) 122 mg/dL (65-110) H 05/13/17 11:57 Random Glucose 147 mg/dL (65-105) H 05/20/17 05:30 Serum Osmolality 289 mosm/kg (272-300) 05/20/17 05:30 Calcium 8.6 mg/dL (8.4-10.2) 05/20/17 05:30 Total Bilirubin 1.1 mg/dl (0.2-1.3) 05/13/17 12:45 AST 92 U/L (14-36) H D 05/13/17 12:45 ALT 172 U/L (9-52) H 05/13/17 12:45 Alkaline Phosphatase 64 U/L (38-126) 05/13/17 12:45 Total Protein 7.5 G/DL (6.3-8.2) 05/13/17 12:45 Albumin 4.2 g/dL (3.5-5.0) 05/13/17 12:45 Globulin 3.4 gm/dL (2.2-3.9) 05/13/17 12:45 Albumin/Globulin Ratio 1.2 (1.0-2.1) 05/13/17 12:45 Urine Color Lynn (YELLOW) 05/13/17 14:05 Urine Clarity Cldy (Clear) 05/13/17 14:05 Urine pH 5.0 (5.0-8.0) 05/13/17 14:05 Ur Specific [place] 1.029 (1.003-1.030) 05/13/17 14:05 Urine Protein 30 mg/dL (NEGATIVE) 05/13/17 14:05 Urine Glucose (UA) Negative mg/dL (Normal) 05/13/17 14:05 Urine Ketones Negative mg/dL (NEGATIVE) 05/13/17 14:05 Urine Blood Moderate (NEGATIVE) 05/13/17 14:05 Urine Nitrate Positive (NEGATIVE) H 05/13/17 14:05 Urine Bilirubin Negative (NEGATIVE) 05/13/17 14:05 Urine Urobilinogen 2.0 mg/dL (0.2-1.0) H 05/13/17 14:05 Ur Leukocyte Esterase Mod Sunny/uL (Negative) 05/13/17 14:05 Urine RBC (Auto) 12 /hpf (0-3) H 05/13/17 14:05 Urine Microscopic WBC 146 /hpf (0-5) H 05/13/17 14:05 Amorphous Sediment Moderate /ul (<OCC) H 05/13/17 14:05 Urine Bacteria Many (<OCC) H 05/13/17 14:05 - Hospital Course Hospital Course: 62 yo female with history of HTN and recent craniotomy (05/03/2017) for brain tumor biopsy brought by family to the ED because of worsening lethargy since discharge from [facility] a week ago. Patient seen by infectious disease for UTI ESBL + on Merrem, Dr. Mihir Montalvo for Glioblastoma, discussed with family at length regarding potential treatment options vs. hospice consideration. Neurology Dr. Dawson consulted. On Salt tablet- Goal : Na 145- 150, and Osm greater than 300. Also on Amantadine, Keppra, and Dexamethasone. Family would like NH placement since they can not take care of patient at home. Will d/c patient on hospice today 1. UTI (urinary tract infection) ESBL E coli urine culture grew ESBL E Coli sensitive to Meropenem, resistant to Ceftriaxone ID consulted : Dr Au Received Meropenem for 7 days 2.Brain tumor ( Glioblastoma) Dr Butt, neurosurgical consult, recommended no further surgical intervention, poor prognosis. He suggested discussion with family end of life care Dr Ash, oncology consulted - rec Palliative Radiation and chemotherapy- family would like to wait on any further treatment given that patient is very weak and her quality of life will be very poor on radiation and chemo therapy . family decided for inpatient hospice so will d/c her to [facility] Neuro consulted: Dr Dawson on Dexamethasone 6mg IV q 8hrs. Salt Tablets to decrease ICP, Off 3% ( hypertonic soln) Keppra 500mg IV q 12hrs for seizure proph PICC line in place Amantadine 100mg PO BID to improve mental status 3.HTN (hypertension) BP stable. off medication. continue monitoring BP 4. DVT prophylaxis venodyne boots while in bed. avoid anticoagulants and anti platelets because of recent craniotomy Discharge Exam - Head Exam Head Exam: ATRAUMATIC, NORMOCEPHALIC - Eye Exam Eye Exam: EOMI, PERRL Pupil Exam: NORMAL ACCOMODATION - ENT Exam ENT Exam: Mucous Membranes Dry, Mucous Membranes Moist, Normal Exam - Neck Exam Neck exam: Full Rom - Respiratory Exam Respiratory Exam: Clear to PA & Lateral, NORMAL BREATHING PATTERN. absent: Rales, Rhonchi, Wheezes - Cardiovascular Exam Cardiovascular Exam: REGULAR RHYTHM, RRR, +S1, +S2. absent: JVD - GI/Abdominal Exam GI & Abdominal Exam: Normal Bowel Sounds, Soft. absent: Distended, Guarding, Rebound, Tenderness - Rectal Exam Rectal Exam: Deferred - Extremities Exam Extremities exam: normal capillary refill, normal inspection, pedal pulses present - Back Exam Back exam: NORMAL INSPECTION - Neurological Exam Neurological exam: Alert, CN II-XII Intact Additional comments: minimally verbal not answering any questions not moving her right side - Psychiatric Exam Psychiatric exam: Flat Affect - Skin Skin Exam: Dry, Normal Color, Warm Discharge Plan - Follow Up Plan Condition: GUARDED Disposition: HOSPICE - MEDICAL FACILITY Additional Instructions: Discharge to inpatient Hospice
--- NOTE | 2017-05-23 10:16 | CP.PCM.PN ---
Subjective - Date & Time of Evaluation Date of Evaluation: 05/23/17 Time of Evaluation: 10:14 - Subjective Subjective: Ms. Espinoza was seen and examined at the bedside. She remains responsive to all stimuli with minimal verbal response. She is tolerating oral fluids with no signs of aspiration. She is being discharge to an inpatient hospice care facility. There was no untoward events overnight. Objective - Vital Signs/Intake and Output Vital Signs (last 24 hours): Temp Pulse Resp BP Pulse Ox 98 F 62 18 153/84 H 97 05/23/17 08:00 05/23/17 08:00 05/23/17 08:00 05/23/17 08:00 05/23/17 08:00 Intake and Output: 05/23/17 05/23/17 06:59 18:59 Intake Total 305 Balance 305 - Medications Medications: Current Medications Acetaminophen (Tylenol 325mg Tab) 650 mg PO Q6 PRN PRN Reason: Pain, Mild (1-3) Last Admin: 05/23/17 04:03 Dose: 650 mg Amantadine HCl (Amantadine 100 Mg Cap) 100 mg PO BID [facility] Last Admin: 05/23/17 09:18 Dose: 100 mg Bacitracin (Bacitracin Oint) 1 applic TOP BID ABDIRAHMAN Last Admin: 05/23/17 09:19 Dose: 1 applic Hydrocortisone (Hydrocortisone Lotion 2.5%) 1 applic TP BID ABDIRAHMAN Last Admin: 05/23/17 09:19 Dose: 1 applic Levetiracetam 500 mg/ Sodium (Chloride) 105 mls @ 210 mls/hr IVPB Q12 ABDIRAHMAN Last Admin: 05/23/17 09:18 Dose: 210 mls/hr Meropenem 1 gm/ Sodium (Chloride) 100 mls @ 100 mls/hr IVPB Q8 ABDIRAHMAN Last Admin: 05/23/17 09:18 Dose: 100 mls/hr Dexamethasone 6 mg/ Sodium (Chloride) 51.5 mls @ 103 mls/hr IVPB 0000,0600,1200 ,1800 ABDIRAHMAN Last Admin: 05/23/17 05:53 Dose: 103 mls/hr Sodium Chloride (Sodium Chloride Tab) 1 gm PO BID ABDIRAHMAN Last Admin: 05/23/17 09:18 Dose: 1 gm - Labs Labs: 05/20/17 05:30 05/20/17 05:30 PT 11.5 Seconds (9.8-13.1) 05/13/17 12:45 INR 1.1 (0.9-1.2) 05/13/17 12:45 APTT 24.2 Seconds (25.6-37.1) L 05/13/17 12:45 - Constitutional Appears: Cachectic - Head Exam Head Exam: ATRAUMATIC, NORMAL INSPECTION, NORMOCEPHALIC - Neurological Exam Neurological Exam: Alert, Awake Neuro motor strength exam: Left Upper Extremity: 4, Right Upper Extremity: 0, Left Lower Extremity: 3, Right Lower Extremity: 0 Additional comments: Neurological unchanged from previous examination. She has the right side paralysis with right arm contracted. Assessment and Plan (1) UTI (urinary tract infection) Status: Acute (2) Dehydration Status: Acute (3) Glioblastoma Assessment & Plan: Case discussed with Dr. Dawson, continue current medical, physical, and occupational therapies. DVT prophylaxis. Palliative care as per recommendation from primary. Status: Acute
[2017-05-23 12:28] VITALS: BP 121/76; PULSE 76; TEMP 97.8; O2SAT 98
== END 2017-05-23 12:49 | disposition hospice, inpatient (51) | DRG 10 ==
LOC: H.ER 11:45 → H.ERHOLD 14:18 → H.TEL 15:19
PROC: 02HV33Z Insertion of Infusion Device into Superior Vena Cava, Percutaneous Approach (ICD-10-PCS; principal; 2017-05-15)
DX: C71.9 Malignant neoplasm of brain, unspecified (principal); E86.0 Dehydration; G93.6 Cerebral edema; G81.91 Hemiplegia, unspecified affecting right dominant side; R47.01 Aphasia; N39.0 Urinary tract infection, site not specified; I10 Essential (primary) hypertension; B96.20 Unspecified Escherichia coli [E. coli] as the cause of diseases classified elsewhere; Z16.12 Extended spectrum beta lactamase (ESBL) resistance